=== PATIENT | male | born 1950 | race Caucasian/White ===

== ENCOUNTER 2019-09-04 00:46 | Inpatient (IN) | payer MEDICARE, MEDICAID, SELFPAY ==
[2019-09-04] VITALS (26 sets, daily range): BP systolic 119–150; BP diastolic 53–70; PULSE 60–100; RESP 12–28; TEMP 36.7–37.1; O2SAT 83–96; BMI 43.6; BMI 42.3; BMI 42.4
--- NOTE | 2019-09-04 00:52 | EKG12_ITS ---
Test Reason : SOB Blood Pressure : / mmHG Vent. Rate : 081 BPM Atrial Rate : 081 BPM P-R Int : 122 ms QRS Dur : 100 ms QT Int : 382 ms P-R-T Axes : 045 -13 080 degrees QTc Int : 443 ms Normal sinus rhythm Nonspecific ST and T wave abnormality Abnormal ECG Confirmed by ALICE KAMINSKI, VIKAS ([id number]), online editor JONO CARNEY ([id number]) on 09/06/2019 11:15:30 AM Referred By: MARCELINO Confirmed By:YENY JENKINS MD
--- NOTE | 2019-09-04 01:00 | RAD_ITS ---
STUDY: X-RAY CHEST REASON FOR EXAM: Male, 69 years old. INCREASED SOB X 2 DAYS -- WHEEZING TECHNIQUE: Single AP portable upright view of the chest. COMPARISON: PA and lateral chest x-ray January 20, 2013. FINDINGS: There are ill-defined, mixed bilateral perihilar interstitial and alveolar densities suggesting pulmonary edema. An inflammatory process might also have this appearance. There is no demonstrated pleural abnormality. Normal size heart. Normal mediastinum and megan. Normal visualized pulmonary arteries. Normal visualized aortic arch and descending thoracic aorta. Normal visualized thoracic spine. Normal visualized ribs, clavicles, and shoulders. There is no demonstrated abnormality of the visualized soft tissue structures of the upper abdomen. RAD/Chest 1 View (Portable) IMPRESSION: Bilateral ill-defined perihilar infiltrates consistent with pulmonary edema versus inflammation. Electronically Signed: Klaus Galloway MD at 1:26 EST , Service support ,
[2019-09-04 01:02] LABS: Absolute Lymphocyte Count 1.82 X10^3/uL (0.83-4.51); Absolute Neutrophil Count 10.3 X10^3/uL (2.0-7.7); Basophil# 0.04 X10^3/uL; Basophil% 0.3 % (0-1); Eosinophil# 0.02 X10^3/uL; Eosinophils% 0.1 % (0-5); Hematocrit 42.6 % (40-54); Hemoglobin 13.8 g/dL (13.0-16.5); Lymphocyte # 1.82 X10^3/ul (4.0); Lymphocyte % 12.5 % (19-41); Mean Corp Hgb Conc 32.4 g/dL (32-36); Mean Corpuscular Hgb 28.8 pg (27.0-32.0); Mean Corpuscular Volume 88.8 fL (80-94); Mean Platelet Vol. 11.5 fl (6.2-12.0); Monocyte# 2.27 X10^3/uL; Monocyte% 15.6 % (0-10); NRBC Flagged by Analyzer 0 % (0-5); Neutrophil # 10.28 X10^3/uL (2.7-7.7); Neutrophil % 70.9 % (47-70); POSITIVE DIFFERENTIAL YES; Platelet Count 228 K/mm3 (150-450); RBC Distribution Width CV 14.5 % (11.6-14.6); RBC Distribution Width SD 47.3 fl (35.1-43.9); White Blood Count 14.5 K/mm3 (4.4-11.0)
[2019-09-04 01:14] LABS: International Normalized Ratio 1.2; Prothrombin Time (Protime)PT. 15.1 SECONDS (11.7-14.9)
[2019-09-04 01:15] LABS: Partial Thromboplast Time 33.1 Seconds (24.1-36.2)
[2019-09-04 01:22] LABS: ALB/GLOB Ratio 0.6 RATIO (0.9-2.4); AST(SGOT) 15 U/L (15-37); Alanine Aminotransfer ALT/SGPT 18 U/L (16-61); Alkaline Phosphatase 67 U/L (45-117); Anion Gap 10 (5-15); BUN 33 mg/dL (7-18); BUN/Creat Ratio 18.8 RATIO (10-20); Calcium,Total 9.5 mg/dL (8.5-10.1); Chloride 102 mmol/L (98-107); Creatinine, Serum 1.76 mg/dL (0.70-1.30); Differential Indicated SCAN CRITERIA MET; EST Glomerular Filtration Rate 41 mL/min (>60); Est Glom Filt Rate - Afr Amer 50 mL/min (>60); Estimated Creatinine Clearance 33.64 ml/min; Globulin 5.1 g/dL (2.2-4.2); Glucose 368 mg/dL (74-106); Potassium 4.2 mmol/L (3.5-5.1); Protein, Total 8.1 g/dL (6.4-8.2); Sodium Level 134 mmol/L (136-145)
[2019-09-04 01:28] LABS: Lactic Acid 4.4 mmol/L (0.4-1.9)
[2019-09-04 01:32] LABS: Bacteria 0 SEEN /hpf (None Seen); Mucous, Urine 0 SEEN /hpf (<or=2+); Red Blood Cells-Urine 0 SEEN /hpf (0-5); Squamous Epithelial Cells - UA 0 SEEN /hpf (0-5); White Blood Cells 0 SEEN /hpf (0-5)
[2019-09-04 01:35] LABS: BNP,B-Type NATRIURETIC PEPTIDE 890.4 pg/mL (0-100)
[2019-09-04 01:38] LABS: Color, Urine Yellow (Yellow); Glucose, Dipstick 1000 mg/dl (Normal); Ketone-Dipstick Negative (Negative); Leukocyte Esterase-Dipstick Negative /ul (Negative); Nitrite-Dipstick Negative (Negative); Occult Blood-Urine 25 /ul (Negative); Protein-Dipstick 100 mg/dl (Negative); Urine Bilirubin Dipstick Negative (Negative); Urine Clarity Clear (Clear); Urine Urobilinogen Normal (Normal)
[2019-09-04 01:39] LABS: Differential Comment SCANNED
--- NOTE | 2019-09-04 01:59 | HP.PCM_ITS ---
Problem List (1) Heart failure Status: Suspected (2) Morbidly obese Status: Chronic (3) Dyslipidemia Status: Chronic (4) DME (diabetic macular edema) Status: Chronic (5) Benign essential HTN Status: Chronic History of Present Illness Date of Admission: 09/04/19 Chief Complaint: sob The patient is a 69 year old M patient with history of hypertension; but obesity; diabetes mellitus who presents emergency department with 2-3 days history of progressive worsening shortness of breath. His shortness of breath at rest and it increases markedly with minimal exertion. Associated with symptoms is orthopnea. He denies paroxysmal nocturnal dyspnea. BNP elevated but most elevated and chest x-ray was consistent with primary edema versus inflammation. ABG at the emergency department was remarkable PO2 of 68. Emergent department doctor reported the patient was speaking in short sentences and was in respiratory distress. BiPAP was placed at emergency department. Patient was found to have elevated troponin at the emergency department. Nitropaste was placed and patient was given 324 mg of aspirin. Past Medical History Past Medical History (Chronic Problems): Chronic Problems Morbidly obese (Chronic) Dyslipidemia (Chronic) DME (diabetic macular edema) (Chronic) Benign essential HTN (Chronic) Allergies No Known Allergies Allergy (Verified 09/04/19 00:51) Home Medications: Ambulatory Orders Medication Instructions Recorded Amlodipine [Norvasc] 10 mg PO DAILY 09/04/19 Atenolol [Tenormin (beta trisha)] 25 mg PO DAILY 09/04/19 Empagliflozin [Jardiance] 10 mg PO DAILY 09/04/19 Insulin Aspart [Novolog Flexpen] 35 units SUBCUT TID 09/04/19 Insulin Glargine,Hum.rec.anlog 70 units SUBCUT QHS 09/04/19 [Lantus] Metformin HCl [Metformin HCl ER] 1,000 mg PO BID 09/04/19 Oxybutynin [Ditropan] 5 mg PO DAILY 09/04/19 Pravastatin Sodium 20 mg PO QHS 09/04/19 Terazosin HCl [Hytrin] 2 mg PO QHS 09/04/19 hydroCHLOROthiazide 6.25 mg PO DAILY 09/04/19 [Hydrochlorothiazide] Surgical History: herniorrhaphy, - - Elbow surgery x2 Lives: With Family Smoking Status: Never smoker Alcohol: None - *Family History Maternal History Items: Diabetes, Hypertension Paternal History Items: Diabetes, Hypertension Review of Systems Constitutional: Denies: Chills, Fever, Weight Change HEENT: Denies: Head Aches, Sinus Congestion, Sinus Drainage Cardiovascular: Reports: Orthopnea. Denies: Chest Pain, Palpitations Respiratory: Reports: Shortness of breath at rest. Denies: Cough, Sputum production Gastrointestinal: Denies: Abdominal Pain, Nausea, Vomiting Genitourinary: Denies: Dysuria Musculoskeletal: Denies: Joint Pain, Joint Tenderness Skin: Denies: Rash, Wounds Neurological: Denies: Numbness, Tingling, Focal weakness Psychiatric: Denies: Anxiety, Depression, Homicidal Ideations, Suicidal Ideations Hematologic/ Lymphatic: Denies: Easy Bruising, Easy Bleeding VTE Information - Inpt Only VTE Present on Admission: No VTE Mechan Device Prophylaxis: None VTE Pharm Prophylaxis ordered?: No Patient Problems: Active and Suspected Problems Heart failure (Suspected) - Physical Exam Vitals/I&O's: Vital Signs Temp Pulse Resp BP Pulse Ox 98.5 F 87 26 H 150/67 H 93 09/04/19 00:52 09/04/19 00:52 09/04/19 00:52 09/04/19 00:52 09/04/19 00:52 Oxygen Flow Rate (L/min) 3 Oxygen Delivery Method Nasal Cannula Weight: 115.3 kg Body Mass Index (BMI) 43.6 General: Alert, Oriented x3, Cooperative HEENT: Atraumatic, PERRLA, EOMI, Normocephalic Neck: Supple, No JVD, Negative Carotid Bruits Lungs: No rhonchi, No wheeze, Diminished, Tachypneic, Using Accessory Muscles, - - On BiPAP Cardiovascular: Regular rate, Normal S1, Normal S2, No murmurs Abdomen: Bowel Sounds Present, Soft, Non Tender Extremities: Capillary Refill Less than 3 Seconds, No Calf Tenderness Skin: No rashes, No breakdown Musculoskeletal: No Tenderness to Palpation of Joints or Extremities Neurological: Cranial nerves II-XII grossly intact Psych/Mental Status: Normal Affect, Appropriate Laboratory Results 09/04/19 00:50: WBC 14.5 H, RBC 4.80, Hgb 13.8, Hct 42.6, MCV 88.8, MCH 28.8, MCHC 32.4, RDW Std Deviation 47.3 H, RDW Coeff of Hayde 14.5, Plt Count 228, MPV 11.5, Immature Gran % (Auto) 0.600, Neut % (Auto) 70.9 H, Lymph % (Auto) 12.5 L, [place] % (Auto) 15.6 H, Eos % (Auto) 0.1, Baso % (Auto) 0.3, Absolute Neuts (auto) 10.3 H, Absolute Lymphs (auto) 1.82, Nucleated RBC % 0, Differential Comment SCANNED, Diff Path Review November09/04/19 00:50: PT 15.1 H, INR 1.2, APTT 33.1 09/04/19 00:50: Sodium 134 L, Potassium 4.2, Chloride 102, Carbon Dioxide 22.0, Anion Gap 10, BUN 33 H, Creatinine 1.76 H, Estim Creat Clear Calc 33.64, Est GFR (MDRD) Af Amer 50 L, Est GFR (MDRD) Non-Af 41 L, BUN/Creatinine Ratio 18.8, Glucose 368 H, Calcium 9.5, Total Bilirubin 0.90, AST 15, ALT 18, Alkaline Phosphatase 67, Troponin I 0.329 H, Total Protein 8.1, Albumin 3.0 L, Globulin 5.1 H, Albumin/Globulin Ratio 0.6 L 09/04/19 00:50: Lactic Acid 4.4 H* 09/04/19 00:50: B-Natriuretic Peptide 890.4 H 09/04/19 01:28: Urine Color Yellow, Urine Clarity Clear, Urine pH 6.0, Ur Specific [place] 1.010, Urine Protein 100 H, Urine Glucose (UA) 1000 H, Urine Ketones Negative, Urine Occult Blood 25 H, Urine Nitrite Negative, Urine Bilirubin Negative, Urine Urobilinogen Normal, Ur Leukocyte Esterase Negative, Urine RBC 0 SEEN, Urine WBC 0 SEEN, Ur Squamous Epith Cells 0 SEEN, Urine Bacteria 0 SEEN, Urine Mucus 0 SEEN Assessment/Plan The patient is a 69 year old M patient with history of hypertension; morbid obesity; and diabetes mellitus who presented at the emergency department with 2-3 days history of progressive worsening shortness of breath; and found to have hypoxia; elevated lactic acid; elevated troponin and with chest x-ray finding of bilateral ill-defined perihilar infiltrates consistent with likely acute heart failure Suspect heart failure Patient with leukocytosis but with no fever. Also patient with lactic acidosis. Place on monitored bed at [facility] Weight on admission; and then daily Strict I&O's Impression of chest x-ray: Bilateral ill-defined perihilar infiltrate consistent with pulmonary edema versus inflammation. Chest x-ray was independently reviewed I agree with radiologist interpretation. EKG independently reviewed confirms nonspecific ST abnormalities. Emergency department labs reviewed confirms a BNP of 890.4. Lasix 40 mg IV x1. Lasix 40 mg IV twice daily with potassium supplementation ordered. Trend BMP. Echo ordered to evaluate LVEF and wall motion Monitor electrolytes Fluid restriction of 1500 mls daily 2 g cardiac diet Continue BiPAP started at the emergency department. Nitropaste was placed on the emergency department; continue. Elevated troponin Troponin on presentation was 0.329 Likely secondary to demand ischemia from CHF. Trend troponin. If troponin remained elevated consider cardiology consult. Aspirin 325 mg given emergency department. Aspirin 81 mg daily. Diabetes mellitus with hyperglycemia Glucose on presentation was 368 Resume home Lantus. Metformin held secondary to lactic acidosis. Home prandial insulin continued. Accu-Chek QA CHS with correction scale insulin. Continue SGLT2 inhibitors. Lispro 8 units subcutaneous x1 dose ordered Hypertension On presentation blood pressure was not within goal Amlodipine continued Atenolol continued Hydrochlorothiazide continued Lasix as above. Trend blood pressure and adjust blood pressure medications OLAYINKA Creatinine was 1.76. BUN is 33. BUN over creatinine is 18.8. Likely secondary to decreased perfusion secondary to CHF. Lasix as above. Trend BMP. Morbid obesity BMI 43.6. Counseled DVT prophylaxis Subcutaneous Lovenox.. Code Visit Inpatient E&M: 10386 Init Hosp L3
[2019-09-04] MEDS: Nitroglycerin Oint 1 INCH PACKET TRANSDERM. ×4 (02:05→17:23)
[2019-09-04] MEDS: Aspirin 81 MG TAB.CHEW 324 MG PO (02:06)
--- NOTE | 2019-09-04 02:07 | NURSING ---
TALKED TO MARISSA AT THE [facility] AND WAS TOLD THEY ARE NOT TAKING ANY TRANSFERS THIS EVENING.
[2019-09-04 02:10] LABS: Allen Test POS; Base Excess -1 mmol/L (-2 to +2); Bicarbonate 24.2 mmol/L (22-26); Blood Gas Specimen Type ART; EPAP 6; FI02 30; IPAP 12; PO2 68 mmHG (75-100); RR 12; SITE R Radial; SO2 93 % (95-99); Time Given 158; Total Carbon Dioxide 25 mmol/L; pCO2 40.7 mmHg (35-45); pH 7.38 (7.35-7.45)
[2019-09-04] MEDS: Furosemide 40 MG/4 ML Vial IV ×3 (02:50→17:23)
--- NOTE | 2019-09-04 02:51 | ED.VISSUMM ---
- ER Visit Summary Date of Service: 09/04/19 Chief Complaint: Shortness of breath History of Present Illness: The patient is a 69 M with shortness of breath for 2 days. This came on gradually. Worse with exertion. He also complains of wheezing and a dry cough. Denies fevers. Denies sputum. Denies upper respiratory infection symptoms. Denies any GI or symptoms. Denies rash. No recent sick contacts or travel. He has a history of diabetes, hypertension, hyperlipidemia. Denies any history of lung disease or PE. Denies any history of heart disease. Physical Examination: Afebrile and vital signs unremarkable except for respiratory rate of 26 and pulse ox 93% on nasal cannula. He is speaking in 2 word phrases and appears to be in moderate distress. Alert and oriented. Heart regular rate and rhythm. Lungs diminished in all davis. Abdomen soft and nontender. Extremities show 1+ pitting edema, symmetric. Nontender. Skin otherwise normal. Test Results: EKG shows sinus rhythm at a rate of [address] and T wave changes. White count 14.5, glucose 368, BUN 33, creatinine 1.76. Coags unremarkable. Urinalysis normal. Troponin 0.329, BNP 890, lactate 4.4. Cultures pending. Influenza negative. ABG showed a pH of 7.38, CO2 40, O2 68. Chest x-ray showed pulmonary edema pattern. Emergency Department Course and Treatment: Patient was seen on arrival to the ED. He was in respiratory distress and started on BiPAP. There was concern for COPD and CHF primarily. He is not having a lot of infectious symptoms however. He is not having fevers. He seemed to be doing well on BiPAP. EKG was nonspecific. Troponin was slightly elevated 0.3. BNP 890. X-ray showed congestion. He did have a white count of 14.5 and a lactate of 4.4. I spoke with him again. He has no infectious symptoms, and I do not think this is sepsis. His urine was normal. I will not administer fluid bolus or antibiotics at this time. Patient was treated with aspirin, nitro, and the hospitalist ordered Lasix. Patient is stable and will be admitted to the PCU for further care. Treatment Plan: As above Disposition: PCU Impression: 1. CHF 2. Lactic acidosis 3. Hypoxic respiratory failure This note was generated with Dragon dictation software. It may contain incorrect words, spelling, and punctuation that were not noted in review of the chart prior to signing
--- NOTE | 2019-09-04 03:35 | ECHOD_ITS ---
Reason For Study: Dyspnea/SOB Procedure This was a 2D Doppler, Color Flow transthoracic echocardiogram. The study was technically difficult. Did not use Definity due to increased PAP. Exam performed portable in patient room. Left Ventricle Normal LV size. The estimated ejection fraction is 35 %. Stage 2 diastolic dysfunction. There is moderate global hypokinesis of the left ventricle. Right Ventricle Normal RV size. Normal systolic function. Atria The left atrium is mildly enlarged. Normal right atrium. No doppler evidence for ASD. Mitral Valve There is no mitral valve stenosis. Trivial mitral valve insufficiency. Tricuspid Valve There is no tricuspid stenosis. Mild tricuspid valve insufficiency. Severe pulmonary hypertension. Pulmonary artery systolic pressure is 75 mmHg. Aortic Valve Trisinus/trileaflet aortic valve. Aortic sclerosis, no stenosis. There is no aortic stenosis. No aortic valve insufficiency. Pulmonic Valve There is no pulmonic valvular stenosis. No pulmonic valve insufficiency identified. Great Vessels Normal aortic root. Pericardium/Pleural No pericardial effusion. MMode/2D Measurements & Calculations LVIDd: 5.6 cm IVSd: 1.2 cm Ao root diam: 3.4 cm LVIDs: 4.8 cm LVPWd: 1.2 cm RVDd: 3.7 cm FS: 13.3 % LAV(MOD-bp): 67.5 ml LA A4 area: 21.3 cm2 LA dimension(2D): 4.4 cm LAV(MOD-bp) Indexed: 32.9 ml/m2 LAV(MOD-sp2): 69.1 ml LAV(MOD-sp4): 63.1 ml RA A4 area: 12.1 cm2 Doppler Measurements & Calculations MV E max diony: 107.3 cm/sec Lat Peak E' Diony: 6.9 cm/sec Med Peak E' Diony: 4.4 cm/sec MV A max diony: 84.5 cm/sec E/E' lat: 15.6 E/E' med: 24.3 MV E/A: 1.3 Ao V2 max: 168.2 cm/sec LV V1 max: 97.1 cm/sec PA V2 max: 96.0 cm/sec Ao max P.3 mmHg LV V1 max P.8 mmHg Ao V2 mean: 122.6 cm/sec Ao mean P.5 mmHg Ao V2 VTI: 32.3 cm TR max diony: 412.7 cm/sec TR max P.1 mmHg Interpretation Summary The estimated ejection fraction is 35 %. Stage 2 diastolic dysfunction. Trivial mitral valve insufficiency. Mild tricuspid valve insufficiency. Severe pulmonary hypertension. Pulmonary artery systolic pressure is 75 mmHg. Aortic sclerosis, no stenosis. The study was technically limited. Ordering Physician: Kayode Hurley Performed By: Anna Polanco RDCS, RVT
[2019-09-04] MEDS: Insulin Lispro 100 UNIT/ML INSULN.PEN 8 UNIT SC (04:10)
[2019-09-04 04:58] LABS: Reflex Lactate? Y
--- NOTE | 2019-09-04 05:17 | NURSING ---
called lab re: stat troponin order. informed that they were unsuccessful to obtain his blood and fashion patternmaker will be attempting.
[2019-09-04 05:48] LABS: Lactic Acid 2.2 mmol/L (0.4-1.9)
--- NOTE | 2019-09-04 06:22 | NURSING ---
CHARGE NURSE AWARE OF NEW ORDER FOR CARDIOLOGY CONSULT D/T ELEVATED TROPONINS AND REPORTED SHE WILL TEXT DR JENKINS AT THIS TIME
--- NOTE | 2019-09-04 07:57 | PN_ITS ---
Progress Note This is a 69 years old male patient presented to the emergency room because of exertional shortness of breath and he was found to have acute probably systolic CHF. No past history of CAD or congestive heart failure. He is diabetic, hypertensive and had a history of hyperlipidemia. He is on 4 L of oxygen, other vital signs are stable. He is on IV Lasix, atenolol, aspirin and statins. EKG revealed normal sinus rhythm without evidence of acute segment changes. Troponin is elevated consistent with non-ST relation MS. 2D echocardiogram o rdered. Cardiology consulted. Assessment and plan: #1 acute probably systolic CHF. Plan for IV Lasix, 2D echocardiogram, cardiology consult. #2 acute non-ST elevation MS. Plan as above. #3 lactic acidosis: Likely because of hypoxia, no evidence of infection, sepsis with sepsis. #4 kidney disease: Probably chronic secondary to diabetic nephropathy. Unknown baseline creatinine. Admission creatinine 1.7. STROKE Vital Signs/Narrative: Vital Signs Temp Pulse Resp BP Pulse Ox 09/04/19 07:12 69 09/04/19 06:15 71 131/69 H 09/04/19 06:08 98.8 F 71 15 131/69 H 96 09/04/19 06:00 71 15 95 09/04/19 05:14 70 16 93 09/04/19 04:32 76
[2019-09-04 08:16] LABS: Bedside Glucose 282 mg/dL (70-110)
[2019-09-04] MEDS: Aspirin 81 MG TAB.CHEW PO (08:49)
[2019-09-04] MEDS: Oxybutynin 5 MG Tablet PO (09:01)
[2019-09-04] MEDS: Atenolol 25 MG Tablet PO (09:03)
[2019-09-04] MEDS: Empagliflozin 10 MG Tablet PO (09:04)
[2019-09-04] MEDS: hydroCHLOROthiazide 6.25mg TAB 6.25 MG PO (09:04)
[2019-09-04] MEDS: amLODIPine 10 MG Tablet PO (09:05)
[2019-09-04] MEDS: Insulin Lispro 100 UNIT/ML INSULN.PEN 35 UNIT SC ×3 (09:20→17:24)
[2019-09-04] MEDS: Insulin Lispro 100 UNIT/ML INSULN.PEN SC ×3 (09:24→17:25)
--- NOTE | 2019-09-04 11:58 | CM.UR ---
Addendum entered by Guerita Liu 09/04/19 15:30: Faxed clinical to [facility] PCP so they are aware of IP status, new diagnosis of CHF and discharge planning has been started. also started green [facility]. [facility] use [facility] services and they also can take medicare so he can use them, if approved to start [facility] but if he can't make it to [facility] for his 30 day f/u then he can stay with them but switch the payer over to his [facility]. Hernandez Liu RN,CCM. Addendum entered by Guerita Liu 09/04/19 12:17: Patient requested a prescription for a handicap placard. Explained he'll need to discuss with his pcp. I asked about his ability to ambulate. States the problem lies in his incontinence. States the shortly after getting up to walk he has to urinate and will either dribble or sometimes has full urination. Encouraged patient to ambulate as it is good for him as he is obese and that exercise would be good for his heart. Encouraged him that when he drives the [place] to the store --he should get out of van and walk around too. Verb understanding. Hernandez Liu RN, CCM. Original Note: RN CM Assessment Introduced role of RN CM to patient. Patient is alert and able to participate in RN CM Assessment. Care providers, pharmacy, and demographics verified. No family at bedside. Presentation: worsening sob Admit Dx: suspected heart failure Re-Admit: no Barriers/Issues: motivation PCP: RICK Londono. States he got new provider and doesn't know her name. Preferred Pharmacy: [facility] Insurance: [facility] A/B, Medicaid and [facility] Benefit: [facility]--has not used his medicaid benefits as of yet. States it is new. LNOK: , Norma LW/HPOA: None. [facility] is interested in doing while in hospital. Alerted SW. Living Arrangements: Lives in apartment. Only a couple steps in and manages them ok. However laundry is in basement. both him and his have trouble with the steps and are looking for a different apartment. ADL?s: Independent with all ADLs. Transportation: drives self. DME: Shower chair, raised toilet DME co: [facility] HHC: None SNF: None Goal: Home with no needs. DC PLAN: Home. following for possible O2 need. [facility]. I explained they don't do o2 on the weekend so it wouldn't be til Friday or Friday that the o2 can be obtained [facility]. Also explained that he would have to go to [place] within 30 days in order to be assessed to keep the O2. States that he does have trouble making it to [place] d/t working 6 days per week. Explained that he should consider getting locally through is [facility]. Verb understanding. Recommended he think about it. Explained we will try to wean him and hopefully it won't be an issue at all. Verb understanding. Hernandez Liu, RN, CCM.
[2019-09-04 12:31] LABS: Bedside Glucose 290 mg/dL (70-110)
[2019-09-04 17:41] LABS: Bedside Glucose 190 mg/dL (70-110)
--- NOTE | 2019-09-04 18:05 | CM.ED ---
SOCIAL WORK INFORMANT: MING RUSSELL REASON FOR REFERRAL: [facility] DIRECTIVES MET WITH PATIENT AND IN ROOM. INTRODUCED ROLE AND REASON FOR REFERRAL. PATIENT WISHES TO COMPLETE [facility] DIRECTIVES. PATIENT A&OX3. PATIENT WANTING NAMED HPOA. ADVANCED DIRECTIVES COMPLETED WITH PATIENT. ORIGINAL PROVIDED TO PATIENT AND COPY ADDED TO CHART. Kassie THOMPSON MSW, ACUPUNCTURIST.
[2019-09-04] MEDS: Pravastatin 20 MG Tablet PO (21:45)
[2019-09-04] MEDS: Doxazosin 1 MG Tablet 2 MG PO (21:45)
[2019-09-04 21:46] LABS: Bedside Glucose 69 mg/dL (70-110)
--- NOTE | 2019-09-04 23:45 | PCM.PN.BLA ---
Progress Note Blood glucose 69. Long-acting insulin held. Blood glucose at 2 AM. If blood glucose more than 150 consider giving long-acting insulin. STROKE Vital Signs/Narrative: Vital Signs Temp Pulse Resp BP Pulse Ox 09/04/19 22:59 64 09/04/19 21:30 98.2 F 65 14 128/70 H 94
[2019-09-05] VITALS (15 sets, daily range): BP systolic 113–137; BP diastolic 54–74; PULSE 63–76; RESP 16–18; TEMP 36.9–37.1; O2SAT 4–94
[2019-09-05] MEDS: Nitroglycerin Oint 1 INCH PACKET TRANSDERM. ×4 (00:22→17:01)
--- NOTE | 2019-09-05 02:02 | PCM.PN.BLA ---
Progress Note Repeat blood glucose is 102. With previous day episodes of hyperglycemia will restart Lantus but at a lower dose. Decrease Lantus from 70 units nightly to 30 units nightly. Give half dose of prandial insulin if patient eats less than 50% of meals. Of note reportedly patient ate only a little of his dinner last night and for which reason his blood glucose was 69. STROKE Vital Signs/Narrative: Vital Signs Pulse BP 09/05/19 00:22 65 125/68 H 09/04/19 22:59 64
[2019-09-05 02:06] LABS: Bedside Glucose 102 mg/dL (70-110)
[2019-09-05 06:08] LABS: Absolute Lymphocyte Count 1.94 X10^3/uL (0.83-4.51); Absolute Neutrophil Count 5.3 X10^3/uL (2.0-7.7); Basophil# 0.03 X10^3/uL; Basophil% 0.4 % (0-1); Eosinophil# 0.13 X10^3/uL; Eosinophils% 1.5 % (0-5); Hematocrit 37.9 % (40-54); Hemoglobin 12.2 g/dL (13.0-16.5); Lymphocyte # 1.94 X10^3/ul (4.0); Lymphocyte % 22.8 % (19-41); Mean Corp Hgb Conc 32.2 g/dL (32-36); Mean Corpuscular Hgb 28.4 pg (27.0-32.0); Mean Corpuscular Volume 88.3 fL (80-94); Monocyte# 1.12 X10^3/uL; Monocyte% 13.1 % (0-10); NRBC Flagged by Analyzer 0 % (0-5); Neutrophil # 5.25 X10^3/uL (2.7-7.7); Neutrophil % 61.6 % (47-70); Platelet Count 222 K/mm3 (150-450); RBC Distribution Width CV 14.6 % (11.6-14.6); RBC Distribution Width SD 46.9 fl (35.1-43.9); Red Blood Count 4.29 M/mm3 (4.6-6.2); White Blood Count 8.5 K/mm3 (4.4-11.0)
[2019-09-05 06:35] LABS: Anion Gap 6 (5-15); BUN 35 mg/dL (7-18); BUN/Creat Ratio 23.3 RATIO (10-20); Calcium,Total 9.6 mg/dL (8.5-10.1); Chloride 103 mmol/L (98-107); EST Glomerular Filtration Rate 49 mL/min (>60); Est Glom Filt Rate - Afr Amer 60 mL/min (>60); Estimated Creatinine Clearance 39.47 ml/min; Glucose 108 mg/dL (74-106); Potassium 3.7 mmol/L (3.5-5.1); Sodium Level 138 mmol/L (136-145)
--- NOTE | 2019-09-05 08:20 | PCM.PROGNOTE ---
Patient Problems: Active and Suspected Problems Acute CHF (congestive heart failure) (Acute) Subjective: Chief complaint: Follow-up after admission for acute combined diastolic and systolic CHF and acute non-ST relation NV. Patient seen and examined. No acute events overnight. He reported that his breathing is getting better, still requiring oxygen. Denied any chest pain, palpitation, dizziness or lightheadedness. He is afebrile, blood pressure and heart rate are stable, pulse ox is 94% on 4 L. - Physical Exam Vitals/I&O's: Vital Signs Temp Pulse Resp BP Pulse Ox 98.5 F 76 16 137/73 H 4 09/05/19 03:15 09/05/19 07:06 09/05/19 03:15 09/05/19 06:25 09/05/19 07:30 Oxygen Flow Rate (L/min) 4 Oxygen Delivery Method Nasal Cannula Weight: 239 lb 13.807 oz Body Mass Index (BMI) 42.3 Intake and Output for Last 24 Hours 09/03/19 09/04/19 09/05/19 23:59 23:59 23:59 Intake Total 1030 / 1030 Output Total 5 / 2094 150 / 150 Balance -1065 / -1065 -150 / -150 General: Alert, Oriented x3, Cooperative, No apparent distress HEENT: Atraumatic, PERRLA, EOMI, Normocephalic Oral: Moist Mucosa, No Gingival or Mucosal Lesions/ Ulcerations Neck: Supple, No JVD, Negative Carotid Bruits, Trachea Midline, Thyroid Normal Size and Texture Lungs: No rhonchi, No wheeze, Diminished, Rales, - - Decreased breath sounds bilateral, bilateral basilar crackles. Cardiovascular: Regular rate, Regular Rhythm, Normal S1, Normal S2, PMI Normal Abdomen: Bowel Sounds Present, Soft, Non Tender, Non-Distended, No Hepato-splenomegaly, Obese Extremities: No clubbing, No cyanosis, Edema - Trace edema. Skin: No rashes, No breakdown Lymphatic: No Cervical, Supraclavicular, or Inguinal Adenopathy Neurological: Cranial nerves II-XII grossly intact, Motor Exam 5/5 strength throughout Psych/Mental Status: Normal Affect, Appropriate, Alert and oriented to time, place, person, mood and affect Microbiology Past 72 Hours 09/04/19 01:38 Mucosa - Nasopharyngeal Influenza Types A,B Direct FA (MELISA) - Final Laboratory Results 09/04/19 08:03: Troponin I 1.930 H* 09/04/19 12:14: POC Glucose 290 H 09/04/19 17:14: POC Glucose 190 H 09/04/19 21:33: POC Glucose 69 L 09/05/19 01:57: POC Glucose 102 09/05/19 05:36: WBC 8.5, RBC 4.29 L, Hgb 12.2 L, Hct 37.9 L, MCV 88.3, MCH 28.4, MCHC 32.2, RDW Std Deviation 46.9 H, RDW Coeff of [place]de 14.6, Plt Count 222, MPV 11.0, Immature Gran % (Auto) 0.600, Neut % (Auto) 61.6, Lymph % (Auto) 22.8, [place] % (Auto) 13.1 H, Eos % (Auto) 1.5, Baso % (Auto) 0.4, Absolute Neuts (auto) 5.3, Absolute Lymphs (auto) 1.94, Nucleated RBC % 0 09/05/19 05:36: Sodium 138, Potassium 3.7, Chloride 103, Carbon Dioxide 29.0, Anion Gap 6, BUN 35 H, Creatinine 1.50 H, Estim Creat Clear Calc 39.47, Est GFR (MDRD) Af Amer 60, Est GFR (MDRD) Non-Af 49 L, BUN/Creatinine Ratio 23.3 H, Glucose 108 H, Calcium 9.6 Current Medications Acetaminophen (Tylenol) 650 mg PO Q6H PRN PRN PRN Reason: Pain Score 1-10 /Temp>100.7 Amlodipine Besylate (Norvasc) 10 mg PO DAILY [facility] Last Admin: 09/04/19 09:05 Dose: 10 mg Documented by: Aspirin (Aspirin, Baby) 81 mg PO DAILY@0800 [facility] Last Admin: 09/04/19 08:49 Dose: 81 mg Documented by: Atenolol (Tenormin (Beta Denise)) 25 mg PO DAILY [facility] Last Admin: 09/04/19 09:03 Dose: 25 mg Documented by: Doxazosin Mesylate (Cardura) 2 mg PO QHS [facility] Last Admin: 09/04/19 21:45 Dose: 2 mg Documented by: Empagliflozin (Jardiance) 10 mg PO DAILY [facility] Last Admin: 09/04/19 09:04 Dose: 10 mg Documented by: Furosemide (Lasix) 40 mg IV BIDLX [facility] Last Admin: 09/04/19 17:23 Dose: 40 mg Documented by: Glucagon () 1 mg IM .X1 PRN PRN Reason: Hypoglycemia Hydrochlorothiazide () 6.25 mg PO DAILY [facility] Last Admin: 09/04/19 09:04 Dose: 6.25 mg Documented by: Dextrose (Dextrose 10%-Water) 250 mls @ 999 mls/hr IV .Q16M PRN; Protocol PRN Reason: HYPOGLYCEMIA Insulin Glargine (Lantus (Bk)) 30 units SC QHS [facility] Last Admin: 09/05/19 03:09 Dose: 30 units Documented by: Insulin Human Lispro (Humalog Kwikpen ([facility])) 35 unit SC TIDAC [facility] Last Admin: 09/04/19 17:24 Dose: 35 units Documented by: Insulin Human Lispro (Humalog Kwikpen (Bk)) 0 unit SC ACHS [facility]; Protocol Last Admin: 09/04/19 21:45 Dose: Not Given Documented by: Nitroglycerin (Nitrobid) 1 inch TRANSDERM. Q6 [facility] Last Admin: 09/05/19 06:25 Dose: 1 inch Documented by: Ondansetron HCl (Zofran) 4 mg IV Q8H PRN PRN PRN Reason: Nausea Oxybutynin Chloride (Ditropan) 5 mg PO DAILY [facility] Last Admin: 09/04/19 09:01 Dose: 5 mg Documented by: Potassium Chloride (Potassium Chl Soln) 40 meq PO DAILY [facility] Last Admin: 09/04/19 08:58 Dose: 40 meq Documented by: Pravastatin Sodium (Pravachol) 20 mg PO QHS [facility] Last Admin: 09/04/19 21:45 Dose: 20 mg Documented by: Sodium Chloride () 10 - 40 ml IV UD PRN PRN Reason: SALINE FLUSH Medical Necessity - Tobacco Use Smoking Status: Never smoker Assessment/Plan All Active Problems Acute CHF (congestive heart failure) (Acute) This is a 69 years old male patient presented to the emergency room because of shortness of breath and he was found to have acute combined systolic and diastolic CHF and acute non-ST elevation NV. #1 acute combined systolic and diastolic CHF: He is on IV Lasix, on atenolol, HCTZ. Patient reported improvement of his symptoms. 2D echocardiogram revealed ejection fraction of 35%, stage II diastolic dysfunction, pulmonary artery pressure of 75. Blood pressure and heart rate are stable, requiring oxygen of up to 4 L. Cardiology consulted. Patient probably will go for cardiac catheterization tomorrow. Plan to start LUIS ALBERTO inhibitor's, discontinue HCTZ. #2 acute non-ST elevation NV: He is chest pain-free. EKG reviewed, no acute segment changes. He is on aspirin, statins, atenolol. 2D echocardiogram reviewed as above. Cardiology on the case. Plan: Start lisinopril, probable cardiac catheterization tomorrow. #3 type 2 diabetes mellitus: Blood sugar has been fluctuating, he is on Humalog insulin 3 times daily, Lantus 30 units nightly as well as sliding scale and Jardiance. Metformin held. #4 hypertension: Blood pressure stable, continue Norvasc, atenolol and Lasix. Plan to start lisinopril, discontinue HCTZ. #5 stage III chronic kidney disease: On the results available his chart was from December,, creatinine 1.5. Admission creatinine was 1.76, it came down to 1.53 today plan to monitor. #6 hyperlipidemia: Continue statins. #7 DVT prophylaxis: Start subcu heparin. This note was generated with [employer] dictation software. It may contain incorrect words, spelling, and punctuation that were not noted in checking the note before signing. Code Visit Inpatient E&M: 64612 Subs Hosp L2
[2019-09-05] MEDS: Aspirin 81 MG TAB.CHEW PO (08:33)
[2019-09-05] MEDS: Oxybutynin 5 MG Tablet PO (08:34)
[2019-09-05] MEDS: Furosemide 40 MG/4 ML Vial IV ×2 (08:34→17:09)
[2019-09-05] MEDS: Empagliflozin 10 MG Tablet PO (08:34)
[2019-09-05] MEDS: amLODIPine 10 MG Tablet PO (08:35)
[2019-09-05] MEDS: Atenolol 25 MG Tablet PO (08:35)
[2019-09-05] MEDS: Insulin Lispro 100 UNIT/ML INSULN.PEN 35 UNIT SC ×3 (08:45→16:59)
--- NOTE | 2019-09-05 09:50 | PCM.CONS.C ---
Reason for Consult Date of Consultation: 09/04/19 Reason for Consultation: CHF, non-STEMI History of Present Illness: The patient is a 69 year old M patient with history of hypertension; but obesity; diabetes mellitus who presents emergency department with 2-3 days history of progressive worsening shortness of breath. His shortness of breath at rest and it increases markedly with minimal exertion. Associated with symptoms is orthopnea. He denies paroxysmal nocturnal dyspnea. ABG at the emergency department was remarkable PO2 of 68. Emergent department doctor reported the patient was speaking in short sentences and was in respiratory distress. BiPAP was placed at emergency department. Patient was found to have elevated troponin at the emergency department. Nitropaste was placed and patient was given 324 mg of aspirin. Patient was started on Lasix and his shortness of breath improved. His echocardiogram revealed decreased EF. Review of systems: All systems reviewed. All else is negative except that in the HPI Past Medical History Allergies/Adverse Reactions: Allergies No Known Allergies Allergy (Verified 09/04/19 00:51) Home Medications: Ambulatory Orders Medication Instructions Recorded Amlodipine [Norvasc] 10 mg PO DAILY 09/04/19 Atenolol [Tenormin (beta trisha)] 25 mg PO DAILY 09/04/19 Empagliflozin [Jardiance] 10 mg PO DAILY 09/04/19 Insulin Aspart [Novolog Flexpen] 35 units SUBCUT TID 09/04/19 Insulin Glargine,Hum.rec.anlog 70 units SUBCUT QHS 09/04/19 [Lantus] Metformin HCl [Metformin HCl ER] 1,000 mg PO BID 09/04/19 Oxybutynin [Ditropan] 5 mg PO DAILY 09/04/19 Pravastatin Sodium 20 mg PO QHS 09/04/19 Terazosin HCl [Hytrin] 2 mg PO QHS 09/04/19 hydroCHLOROthiazide 6.25 mg PO DAILY 09/04/19 [Hydrochlorothiazide] Past Medical History (Chronic Problems): Chronic Problems Chronic kidney disease (CKD) (Chronic) Type 2 diabetes mellitus (Chronic) Morbidly obese (Chronic) Dyslipidemia (Chronic) DME (diabetic macular edema) (Chronic) Benign essential HTN (Chronic) Surgical History: herniorrhaphy, - - Elbow surgery x2 - *Family History Maternal History Items: Diabetes, Hypertension Paternal History Items: Diabetes, Hypertension Lives: With Family Smoking Status: Never smoker Alcohol: None Objective: Vital Signs Temp Pulse Resp BP Pulse Ox 98.7 F 71 16 131/74 H 93 09/05/19 08:28 09/05/19 08:28 09/05/19 08:28 09/05/19 08:28 09/05/19 08:28 Oxygen Flow Rate (L/min) 3 Oxygen Delivery Method Nasal Cannula Weight: 239 lb 13.807 oz Body Mass Index (BMI) 42.3 Intake and Output for Last 24 Hours 09/03/19 09/04/19 09/05/19 23:59 23:59 23:59 Intake Total 1030 / 1030 Output Total 5 / 209 150 / 150 Balance -1065 / -1065 -150 / -150 General: Awake, Alert, Oriented x 3 HEENT: Atraumatic Oral: Moist Mucosa Neck: Supple, Positive JVD Lungs: Rales - Dank Bases Cardiovascular: Normal S1, Normal S2 Abdomen: Soft Extremities: Bilateral Edema +2 Skin: No Rashes Psych/Mental Status: Appropriate 09/05/19 05:36: WBC 8.5, RBC 4.29 L, Hgb 12.2 L, Hct 37.9 L, MCV 88.3, MCH 28.4, MCHC 32.2, Plt Count 222, MPV 11.0, Immature Gran % (Auto) 0.600, Neut % (Auto) 61.6, Lymph % (Auto) 22.8, [place] % (Auto) 13.1 H, Eos % (Auto) 1.5, Baso % (Auto) 0.4, Absolute Neuts (auto) 5.3, Nucleated RBC % 0 09/05/19 05:36: Sodium 138, Potassium 3.7, Chloride 103, Carbon Dioxide 29.0, Anion Gap 6, BUN 35 H, Creatinine 1.50 H, Est GFR (MDRD) Af Amer 60, Est GFR (MDRD) Non-Af 49 L, BUN/Creatinine Ratio 23.3 H, Glucose 108 H, Calcium 9.6 Rhythm: EKG: ECHO: Stress Test: Cardiac Cath: PCI: CT Surgery: Holter monitor: EPS: PPM: CXR: Chest CT Scan: Assessment/Plan 1. CHF: Continue Lasix. 2D echo revealed decreased EF. We will proceed with coronary angiography to evaluate cause for CHF and elevated troponin. 2. Non-STEMI: Continue aspirin beta-trisha and statin. Coronary angiography on Friday.
[2019-09-05] MEDS: Lisinopril 20 MG Tablet PO (10:09)
[2019-09-05 10:46] LABS: Bedside Glucose 137 mg/dL (70-110)
--- NOTE | 2019-09-05 12:34 | PN.CARD_ITS ---
Subjectve: Shortness of breath has improved. Patient is feeling much better today. Objective: Vital Signs Temp Pulse Resp BP Pulse Ox 98.7 F 71 16 131/74 H 93 09/05/19 08:28 09/05/19 08:28 09/05/19 08:28 09/05/19 08:28 09/05/19 08:28 Oxygen Flow Rate (L/min) 3 Oxygen Delivery Method Nasal Cannula Weight: 239 lb 13.807 oz Body Mass Index (BMI) 42.3 Intake and Output for Last 24 Hours 09/03/19 09/04/19 09/05/19 23:59 23:59 23:59 Intake Total 1030 / 1030 240 / 240 Output Total 2095 / 2095 600 / 600 Balance -1065 / -1065 -360 / -360 General: Awake, Alert, Oriented x 3 HEENT: Atraumatic Oral: Moist Mucosa Neck: Supple Lungs: Rales - Dank Bases Cardiovascular: Normal S1, Normal S2 Abdomen: Soft Extremities: Bilateral Edema +1 Skin: No Rashes Psych/Mental Status: Appropriate 09/05/19 05:36: WBC 8.5, RBC 4.29 L, Hgb 12.2 L, Hct 37.9 L, MCV 88.3, MCH 28.4, MCHC 32.2, Plt Count 222, MPV 11.0, Immature Gran % (Auto) 0.600, Neut % (Auto) 61.6, Lymph % (Auto) 22.8, [place] % (Auto) 13.1 H, Eos % (Auto) 1.5, Baso % (Auto) 0.4, Absolute Neuts (auto) 5.3, Nucleated RBC % 0 09/05/19 05:36: Sodium 138, Potassium 3.7, Chloride 103, Carbon Dioxide 29.0, Anion Gap 6, BUN 35 H, Creatinine 1.50 H, Est GFR (MDRD) Af Amer 60, Est GFR (MDRD) Non-Af 49 L, BUN/Creatinine Ratio 23.3 H, Glucose 108 H, Calcium 9.6 Rhythm: EKG: ECHO: Stress Test: Cardiac Cath: PCI: CT Surgery: Holter monitor: EPS: PPM: CXR: Chest CT Scan: Medical Necessity - Tobacco Use Smoking Status: Never smoker Assessment/Plan 1. CHF: Continue Lasix. 2D echo revealed decreased EF. We will proceed with coronary angiography to evaluate cause for CHF and elevated troponin. I will go ahead and change the beta-trisha to Coreg. Agree with adding lisinopril. We will hold the amlodipine to allow for increasing the Coreg and lisinopril. 2. Non-STEMI: Continue aspirin beta-trisha and statin. Coronary angiography on Friday.
[2019-09-05 12:41] LABS: Bedside Glucose 148 mg/dL (70-110)
[2019-09-05] MEDS: Heparin Injection (Vial) 5,000 UNIT/ML VIAL 5000 UNIT SC ×2 (14:31→22:09)
[2019-09-05] MEDS: 0.9% Saline Lock 10 ML Syringe IV (17:10)
[2019-09-05 17:20] LABS: Bedside Glucose 85 mg/dL (70-110)
[2019-09-05] MEDS: Doxazosin 1 MG Tablet 2 MG PO (22:03)
[2019-09-05] MEDS: Pravastatin 20 MG Tablet PO (22:04)
[2019-09-05] MEDS: Carvedilol 6.25 MG Tablet PO (22:11)
[2019-09-05 22:21] LABS: Bedside Glucose 93 mg/dL (70-110)
[2019-09-06] VITALS (16 sets, daily range): BP systolic 95–126; BP diastolic 56–78; PULSE 63–79; RESP 16–19; TEMP 36.4–36.9; O2SAT 93–97
[2019-09-06] MEDS: Nitroglycerin Oint 1 INCH PACKET TRANSDERM. ×4 (00:06→17:10)
[2019-09-06 06:15] LABS: Anion Gap 7 (5-15); BUN 48 mg/dL (7-18); BUN/Creat Ratio 28.9 RATIO (10-20); Calcium,Total 9.4 mg/dL (8.5-10.1); Chloride 102 mmol/L (98-107); Creatinine, Serum 1.66 mg/dL (0.70-1.30); EST Glomerular Filtration Rate 44 mL/min (>60); Est Glom Filt Rate - Afr Amer 53 mL/min (>60); Estimated Creatinine Clearance 35.66 ml/min; Glucose 126 mg/dL (74-106); Sodium Level 137 mmol/L (136-145)
[2019-09-06 06:40] LABS: Bedside Glucose 144 mg/dL (70-110)
[2019-09-06] MEDS: Lisinopril 20 MG Tablet PO (06:48)
[2019-09-06] MEDS: Carvedilol 6.25 MG Tablet PO (06:48)
[2019-09-06] MEDS: Aspirin 81 MG TAB.CHEW PO (06:48)
--- NOTE | 2019-09-06 10:32 | NURSING ---
bedside report given to LEOBARDO Martinez from [employer]
[2019-09-06] MEDS: Oxybutynin 5 MG Tablet PO (11:58)
[2019-09-06] MEDS: Empagliflozin 10 MG Tablet PO (11:59)
[2019-09-06] MEDS: Furosemide 40 MG/4 ML Vial IV (11:59)
[2019-09-06] MEDS: Insulin Lispro 100 UNIT/ML INSULN.PEN 35 UNIT SC ×2 (11:59→17:06)
[2019-09-06] MEDS: Insulin Lispro 100 UNIT/ML INSULN.PEN SC ×2 (12:00→17:07)
[2019-09-06] MEDS: 0.9% Normal Saline 1,000 ML 60 ML IV (12:00)
[2019-09-06 12:15] LABS: Bedside Glucose 200 mg/dL (70-110)
--- NOTE | 2019-09-06 12:34 | PCM.PN.CARD ---
Subjectve: Patient's shortness of breath is improved. Patient underwent coronary angiography today which revealed multivessel coronary artery disease. His creatinine has gone up slightly from 1.5-1.66. Patient is able to lie flat without any problems. Objective: Vital Signs Temp Pulse Resp BP Pulse Ox 98.1 F 79 16 121/61 H 97 09/06/19 12:10 09/06/19 12:30 09/06/19 12:30 09/06/19 12:30 09/06/19 12:30 Oxygen Flow Rate (L/min) 2 Oxygen Delivery Method Nasal Cannula Weight: 238 lb 5.115 oz Body Mass Index (BMI) 42.3 Intake and Output for Last 24 Hours 09/04/19 09/05/19 09/06/19 23:59 23:59 23:59 Intake Total 1030 / 1030 650 / 650 470 / 470 Output Total 2095 / 2095 850 / 850 650 / 650 Balance -1065 / -1065 -200 / -200 -180 / -180 General: Awake, Alert, Oriented x 3 HEENT: Atraumatic Oral: Moist Mucosa Neck: Supple Lungs: Rales - Dank Bases Cardiovascular: Normal S1, Normal S2 Abdomen: Soft Extremities: Trace RLE Edema, Trace LLE Edema Skin: No Rashes Psych/Mental Status: Appropriate 09/06/19 05:10: Sodium 137, Potassium 4.0, Chloride 102, Carbon Dioxide 28.0, Anion Gap 7, BUN 48 H, Creatinine 1.66 H, Est GFR (MDRD) Af Amer 53 L, Est GFR (MDRD) Non-Af 44 L, BUN/Creatinine Ratio 28.9 H, Glucose 126 H, Calcium 9.4 Rhythm: EKG: ECHO: Stress Test: Cardiac Cath: PCI: CT Surgery: Holter monitor: EPS: PPM: CXR: Chest CT Scan: Medical Necessity - Tobacco Use Smoking Status: Never smoker Assessment/Plan 1. CHF: Patient is doing well. We will hold the Lasix for today and consider restarting tomorrow. Patient has multivessel coronary artery disease. I suggest transferring patient to [facility] for evaluation by CT surgeon for possible CABG. 2. Non-STEMI: Continue aspirin beta-trisha and statin. Coronary angiography revealed multivessel coronary disease. Patient is being referred for CABG.
[2019-09-06 13:55] LABS: Pathologist Review Reviewed
--- NOTE | 2019-09-06 16:25 | CL.D_ITS ---
Patient Name: MANISHA FRITZ Study Date: 09/06/2019 Performing: Neel Madden MD Ht: 64 inches 163 cm : 1950 Wt: 238.4 lbs 108 kg Age: 69 Gender: male BSA: 2.11 PROCEDURE(S) PERFORMED [id number] CLINICAL PROFILE AND INDICATIONS Indications: ACS > 24 hrs Heart Failure: NYHA Class: 3, Newly Diagnosed: Yes, Heart Failure Type: Systolic Stress/Imaging Stress/Image Study Performed: No CAD Presentations: Non-STEMI. Symptom onset Date/Time: Time Not Available CONCLUSIONS Multivessel CAD. No significant RECOMMENDATIONS Surgery consult for coronary revascularization DESCRIPTION OF PROCEDURE The patient arrived to the procedure lab. The risks and benefits of the procedure as well as a full d escription of our services here and current unavailability of surgical backup were fully explained to the patient and/or their significant other prior to the catheterization. The Timeout was completed, verifying the correct patient and procedure. The patient's procedural site was prepped and draped in the usual fashion. Local anesthetic was given subcutaneously to right radial region with Lidocaine 2% . Using a modified Seldinger technique, arterial access was obtained via the right radial artery, a 6 Fr sheath was inserted. LV to AO pullback pressures were then recorded. Left Coronary Artery selecti ve angiography was performed in multiple views using a 5 Fr. 4.0 [place] catheter. Right Coronary Arter y selective angiography was then performed in multiple views using a 5 Fr. 4.0 [place] catheter.The art erial sheath was pulled and a TR Band was applied for hemostasis w/12ml air CORONARY ANGIOGRAPHY DOMINANCE: Right Dominant LEFT HEART ASSESSMENT Left Ventricular Ejection Fraction: Not assessed by LV gram due to renal insufficiency. Echo showed a n EF of around 30%. LEFT MAIN: Mild luminal irregularities LEFT ANTERIOR DESCENDING ARTERY: Moderate calcification PROX LAD: 90 % Stenosis DIAGONAL 1: Ostial - 90 % Stenosis. There is a small to medium sized branch of the D1 that is diffuse ly diseased in the proximal portion. CIRCUMFLEX ARTERY: severe diffuse disease RIGHT CORONARY ARTERY: MID RCA: 80 % Stenosis VALVE FINDINGS: No Aortic Valve Stenosis COMPLICATIONS No Complications PROCEDURE MEDICATIONS Versed 1 mg IV Fentanyl 50 mcg IV Oxygen: 2 L/min via nasal cannula Oxygen: 4 L/min via nasal cannula Heparin given IA 09/06/2019 11:08:58 Verapamil 2.5mg, Ntg 100mcgs, 3000 units of Heparin given IA 09/06/2019 11:08:58 IV Bolus: .9 NaCl 150 ml total 09/06/2019 11:13:47 SUMMARY OF HEMODYNAMIC DATA Time AIR REST ECG 10:48:08 LV 130/-4, 7 11:11:47 LV 129/-2, 8 11:11:53 LVp 137/-2, 11 11:12:00 AOp 105/48 (69) 11:12:05 AO 89/49 (68) SA 11:12:36 AO 98/57 (76) 11:17:28 Signed By Neel Madden MD On 09/06/2019 16:24:49 Neel Madden MD
[2019-09-06 17:25] LABS: Bedside Glucose 168 mg/dL (70-110)
--- NOTE | 2019-09-06 18:56 | NURSING ---
verbal report cLLED TO LEOBARDO HERNANDEZ IN [facility]
--- NOTE | 2019-09-09 18:22 | DS.PCM_ITS ---
Discharge Date and Diagnosis Date of Admission: 09/04/19 Date of Discharge: 09/06/19 - Primary Discharge Diagnosis #1 acute combined systolic and diastolic congestive heart failure-ejection fraction 35% #2 acute non-STEMI #3 triple-vessel occlusive coronary artery disease #4 type 2 diabetes #5 essential hypertension #6 stage III chronic kidney disease #7 hyperlipidemia #8 pulmonary hypertension #9 hypoxia secondary to acute combined systolic and diastolic congestive heart failure - Secondary Discharge Diagnosis Chronic Problems (Last Updated 09/06/19 @ 16:53 by Rachele Chapman) Chronic kidney disease (CKD) (Chronic) Type 2 diabetes mellitus (Chronic) Morbidly obese (Chronic) Dyslipidemia (Chronic) DME (diabetic macular edema) (Chronic) Benign essential HTN (Chronic) Hospital Course and Treatment Operations: None Procedures: 2-D Echocardiogram, Cardiac catheterization Summary of Care Provided: The patient is a 69 year old M who was seen in the emergency room at [facility] with chief complaint of shortness of breath. Work-up in the emergency room revealed the patient have an elevated white count of 14.5, glucose was 368, BUN was 33, creatinine was 1.76. Troponin was elevated at 0.329, beta natruretic peptide was elevated at 890, patient's lactic acid was elevated at 4.4. Chest x-ray showed pulmonary edema, patient was on BiPAP for short period of time in the emergency room but this was transitioned to nasal cannula O2. Patient was admitted to PCU, given IV Lasix and the patient had an echocardiogram performed which showed an EF of 35% with evidence of pulmonary hypertension. Patient's cardiac enzymes were cycled and these were elevated indicating a non-STEMI. Patient was taken for cardiac catheterization which revealed triple-vessel disease and it was recommended the patient be transferred to a tertiary facility for further care. On 09/06/2019, patient was seen and examined: On examination he appeared in good health and spirits. Vital signs as documented. Skin warm and dry and without overt rashes. Neck without JVD. Lungs clear. Heart exam notable for regular rhythm, normal sounds and absence of murmurs, rubs or gallops. Abdomen unremarkable and without evidence of organomegaly, masses, or abdominal aortic enlargement. Extremities nonedematous. Neuro: Cranial nerves II through XII are grossly intact, no focal motor deficits were noted, sensation to light touch and pinprick intact. Psych: Patient is alert and oriented x3, he does not appear anxious or depressed On 09/06/2019, patient was transferred in stable condition to [facility] for further medical care. - Physical Exam Vitals/I&O's: Vital Signs Temp Pulse Resp BP Pulse Ox 98.1 F 74 16 111/56 L 97 09/06/19 17:13 09/06/19 18:59 09/06/19 17:13 09/06/19 17:13 09/06/19 17:13 Oxygen Flow Rate (L/min) 2 Oxygen Delivery Method Nasal Cannula Weight: 108.1 kg Body Mass Index (BMI) 42.3 Microbiology Past 72 Hours 09/04/19 01:45 Blood Culture (Wb) - Left Hand Blood Culture - Final No growth in 5 days. 09/04/19 00:50 Blood Culture (Wb) - Anticubital Left Blood Culture - Final No growth in 5 days. Home Medications: Medications to take at Discharge Amlodipine [Norvasc] 10 mg PO DAILY 09/04/19 Atenolol [Tenormin (beta trisha)] 25 mg PO DAILY 09/04/19 Empagliflozin [Jardiance] 10 mg PO DAILY 09/04/19 Insulin Aspart [Novolog Flexpen] 35 units SUBCUT TID 09/04/19 Insulin Glargine,Hum.rec.anlog [Lantus] 70 units SUBCUT QHS 09/04/19 Metformin HCl [Metformin HCl ER] 1,000 mg PO BID 09/04/19 Oxybutynin [Ditropan] 5 mg PO DAILY 09/04/19 Pravastatin Sodium 20 mg PO QHS 09/04/19 Terazosin HCl [Hytrin] 2 mg PO QHS 09/04/19 hydroCHLOROthiazide [Hydrochlorothiazide] 6.25 mg PO DAILY 09/04/19 Primary Care Physician: Care Physician,No Primary [Primary Care Provider] - Disposition: Acute care Hospital Minutes spent on discharge:: 32 Patient Condition:: Stable Medical Necessity - Tobacco Use Smoking Status: Never smoker Meaningful Use Info Meaningful Use Diagnoses (Choose all that apply): CHF - CHF LUIS ALBERTO/ARB ordered at discharge?: Yes Reason LUIS ALBERTO/ARB not ordered?: Worsening renal disease, Worsening renal dysfunctn Documented LVEF (%): 35 Code Visit Inpatient E&M: 28849 Disch Hosp
== END 2019-09-06 20:10 | disposition short-term general hospital (02) | DRG 280 ==
LOC: ED 01:21 → PCU 02:55
PROVIDERS: Hospitalist; Admitting Provider Hospitalist; Emergency Provider Emergency Medicine; Visit Provider Internal Medicine
DX: I21.4 Non-ST elevation (NSTEMI) myocardial infarction (principal); I50.41 Acute combined systolic (congestive) and diastolic (congestive) heart failure; I13.0 Hypertensive heart and chronic kidney disease with heart failure and stage 1 through stage 4 chronic kidney disease, or unspecified chronic kidney disease; E87.2 Acidosis; Z68.41 Body mass index [BMI] 40.0-44.9, adult; E78.5 Hyperlipidemia, unspecified; E11.22 Type 2 diabetes mellitus with diabetic chronic kidney disease; E66.01 Morbid (severe) obesity due to excess calories; N18.3 Chronic kidney disease, stage 3 (moderate); R09.02 Hypoxemia; I25.10 Atherosclerotic heart disease of native coronary artery without angina pectoris; I27.20 Pulmonary hypertension, unspecified; Z79.4 Long term (current) use of insulin
CPT/HCPCS: 36415; 36600; 71045; 80048; 80053; 81001; 82803; 82962; 83605; 83880; 84484; 85025; 85610; 85730; 87040; 87086; 87804; 93005; 93306; 93454; 94002; 94667; 99152; 99153; 99251; 99285; J7030; Q9957; Q9967; A4216; C1769; C1894; G0463; J1940

== ENCOUNTER → 2020-01-14 11:08 | Outpatient (CLI) | payer MEDICARE, MEDICAID, SELFPAY ==
[2019-10-06 11:06] VITALS: BMI 39.6
[2020-01-14 12:49] LABS: Albumin, Serum 2.9 g/dL (3.2-5.0); BUN 23 mg/dL (7-18); Calcium,Total 9.1 mg/dL (8.5-10.1); Chloride 103 mmol/L (98-107); Creatinine, Serum 1.15 mg/dL (0.70-1.30); EST Glomerular Filtration Rate 67 mL/min (>60); Est Glom Filt Rate - Afr Amer 81 mL/min (>60); Glucose 223 mg/dL (74-106); Potassium 4.2 mmol/L (3.5-5.1); Sodium Level 136 mmol/L (136-145)
== END ==
PROVIDERS: Referring Provider Internal Medicine Nephrology; Visit Provider Internal Medicine Nephrology
DX: N18.3 Chronic kidney disease, stage 3 (moderate) (principal)
CPT/HCPCS: 36415; 80069

== ENCOUNTER → 2020-01-17 08:49 | Outpatient (CLI) | payer MEDICARE, MEDICAID, SELFPAY ==
[2019-10-06 11:06] VITALS: BMI 39.6
--- NOTE | 2020-01-17 08:50 | ECHOCS_ITS ---
Reason For Study: LV dysfunction Procedure This was a 2D Doppler, Color Flow transthoracic echocardiogram. The study was technically difficult. Exam performed in department. Left Ventricle Normal LV size. The estimated ejection fraction is 50 %. No evidence for diastolic dysfunction. mild septal hypokinesis. Right Ventricle Normal RV size. Normal systolic function. Atria The left atrium is mildly enlarged. Normal right atrium. No doppler evidence for ASD. Mitral Valve There is no mitral valve stenosis. No mitral valve insufficiency. Tricuspid Valve There is no tricuspid stenosis. Trivial tricuspid valve insufficiency. Unable to estimate RV systolic pressure due to insufficient tricuspid regurgitant envelope. Aortic Valve Trisinus/trileaflet aortic valve. Aortic sclerosis, no stenosis. There is no aortic stenosis. No aortic valve insufficiency. Pulmonic Valve There is no pulmonic valvular stenosis. No pulmonic valve insufficiency. Great Vessels Normal aortic root. Pericardium/Pleural No pericardial effusion. Medication 22 gauge I.V. with prn adaptor inserted into left arm. Diluted definity 3ml given slow IV push to enhance endocardial definition. MMode/2D Measurements & Calculations LVIDd: 5.8 cm IVSd: 0.84 cm Ao root diam: 3.5 cm LVIDs: 5.2 cm LVPWd: 1.2 cm RVDd: 3.9 cm FS: 8.9 % LAV(MOD-bp): 56.2 ml LA A4 area: 20.0 cm2 LA dimension(2D): 4.3 cm LAV(MOD-bp) Indexed: 26.8 ml/m2 LAV(MOD-sp2): 49.8 ml LAV(MOD-sp4): 59.4 ml RA A4 area: 15.1 cm2 Doppler Measurements & Calculations MV E max diony: 121.2 cm/sec Lat Peak E' Diony: 10.8 cm/sec Med Peak E' Diony: 3.8 cm/sec MV A max diony: 80.8 cm/sec E/E' lat: 11.2 E/E' med: 31.8 MV E/A: 1.5 Ao V2 max: 175.9 cm/sec LV V1 max: 88.5 cm/sec PA V2 max: 115.4 cm/sec Ao max P.4 mmHg LV V1 max P.1 mmHg Interpretation Summary The estimated ejection fraction is 50 %. No evidence for diastolic dysfunction. mild septal hypokinesis The study was technically difficult. Contrast injection was performed. Ordering Physician: Roberto Madden Referring Physician: Roberto Madden Performed By: Sara Hudson, TAY
== END ==
PROVIDERS: Referring Provider Specialist; Visit Provider Specialist
DX: G47.33 Obstructive sleep apnea (adult) (pediatric) (principal)
CPT/HCPCS: 93306; Q9957; A4216; C8929

== ENCOUNTER → 2020-02-21 12:46 | Outpatient (CLI) | payer MEDICARE, MEDICAID, SELFPAY ==
[2020-02-14 11:10] VITALS: BMI 40.6
--- NOTE | 2020-02-21 12:50 | CR.HP_ITS ---
CR - History & Physical - General Arrival date:: 02/21/20 Arrival time:: 12:53 Date of Referral:: 02/14/20 Date of CR Evaluation:: 02/21/20 Referring Physician: Dr. Neel Madden Primary Diagnosis: Z95.1 CABG - History of Present Cardiac Event Onset Date: Enter Onset Date of cardiac illnesses in Comment field below Coronary Artery Bypass Graft:: Yes - 09/14/2019 - Medications Home Medications: Ambulatory Orders Medication Instructions Recorded acetaminophen 500 mg tablet 1,000 mg PO Q6H PRN tab 10/01/19 aspirin 81 mg tablet,delayed 81 mg PO DAILY 10/01/19 release atorvastatin 80 mg tablet 80 mg PO QHS 10/01/19 clopidogrel 75 mg tablet 75 mg PO DAILY 10/01/19 metoprolol succinate 25 mg 25 mg PO DAILY 10/01/19 tablet,extended release 24 hr oxybutynin chloride 5 mg tablet 5 mg PO BID tab 10/01/19 tamsulosin 0.4 mg capsule 0.4 mg PO DAILY 10/01/19 tramadol 50 mg tablet 50 mg PO Q6H PRN 10/01/19 furosemide 20 mg tablet 20 mg PO DAILY PRN 02/14/20 insulin aspart U-100 100 unit/mL 20 unit SUBCUT QAC ml 02/14/20 (3 mL) subcutaneous pen insulin glargine 100 unit/mL 60 unit SUBCUT QHS ml 02/14/20 subcutaneous solution losartan 100 mg tablet 100 mg PO DAILY #30 tab 02/14/20 metformin 500 mg tablet 500 mg PO BID 02/14/20 - Allergies Allergies/Adverse Reactions: Allergies LUIS ALBERTO Inhibitors Adverse Reaction (Intermediate, Verified 02/14/20 10:48) cough simvastatin Adverse Reaction (Intermediate, Verified 02/14/20 10:48) cramps - Sleep Disorder Evaluation Hx of Sleep Apnea: Yes Do you snore loudly (louder than talking or can be heard through closed doors)?: No Do you often feel tired/ fatigued/ sleepy during daytime?: No Has anyone observed you stop breathing during sleep?: Yes History of Hypertension (for STOP score): Yes STOP Results: Positive Advanced Directives - Advanced Directives Power of Event Lighting Specialist: Yes Living Will: Yes Advance Directives Information Provided: Yes Advance Directives on File: Yes DNR Order?:: No Past Medical History - Covid-19 Screening Fever: No Unexplained muscle aches: No Current respiratory symptoms: No Upper respiratory infections symptoms: No Gastro-intestinal symptoms: No [id number] symptoms: No Has tested positive for COVID-19 in last 30 days: No Had contact w/person w/symptoms or Covid-19 (+) last 14 days: No Has High Risk Exposures ID'd by Health dept/Inf Control team: No 65 years or older:: Yes Lives in Assisted Living facility:: No Has a chronic lung disease or moderate to severe asthma:: No Has a serious heart condition:: Yes Immunocompromised:: No Severely obese (Body Mass Index of 40 or higher):: Yes Diabetic:: Yes Has chronic kidney disease undergoing dialysis:: Yes Has liver disease:: No - Past Medical Illness Medical History: Past Medical History (Last Reviewed 02/14/20 @ 11:[address] 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 Roberto Madden MD) History of coronary artery bypass graft (Chronic) Onset Date: ~09/14/19 Z95.1 BABB to LAD, SVG to PDA, SVG to OM 09/14/19 History of left heart catheterization (Acute) Onset Date: ~09/06/19 Z98.890 History of ear surgery Z98.890 wire inserted into right ear History of bilateral cataract extraction Z98.41, Z98.42 History of elbow surgery Z98.890 Right X 2 History of eye surgery Z98.890 laser History of hernia repair Z98.890, Z87.19 Right side(ruptured) History of tonsillectomy and adenoidectomy Z98.890 Surgical History: herniorrhaphy, - - Elbow surgery x2 - Family History Summary Family History: Family History (Last Reviewed 02/14/20 @ 11:[address] Roberto Madden MD) Father Diabetes Hypertension Hyperlipidemia Mother Hypertension Diabetes Sister Diabetes Social History - Smoking History Smoking Status: Never smoker Hx Tobacco Use: No Hx Smoking Exposure: No - Alcohol Use Alcohol Usage: No - Substance Abuse Hx Substance Use: No - Occupation Occupation (List type of work in comments):: Employed Hours worked per day:: 8 - Hobbies, Recreation, Social Activities Hobbies: None Recreational Activities: I am able to engage in all my recreational activities Social Environment - Status Marital Status: - Current Living Arrangements Living Environment:: Spouse - Children Do any of your children live nearby?: No - Safety Do you feel safe in your surroundings?: Yes - Assistance Do you need any assistance at home?: none Review of Systems - Review of Systems Hints: Right click = Denies ([place]). Left click = Reports ([place]) Review of Present Symptoms: Reports: Shortness of Breath at Rest, Shortness of Breath with Exertion, Fatigue, Appetite - Normal, Sleep - Normal. 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 Nutrition Referral for Diabetes: No - Obesity Height: 5 ft 4 in Weight:: 107.501 kg Weight in Pounds: 237.0 lbs Body Mass Index (BMI): 40.6 Nutritional Referral for Obesity: No - declines - Physical Inactivity Physical Inactivity: None - Risk Stratification Risk Guidelines: Lowest Risk: Risk Factor for Smoking, Moderate Risk: Risk Factor for Depression, Highest Risk: Risk Factor for Dyslipidemia, Risk Factor for Diabetes, Risk Factor for Obesity, Risk Factor for Hypertension, Risk Factor for Sedentary Lifestyle - For Smoking Smoking Risk Guidelines: Smoking Low Risk: None or quit greater than 6 months ago. Smoking Moderate Risk: Smoker or quit 6 months or less ago. Smoking High Risk: Smoker - For Dyslipidemia Dyslipidemia Risk Guidelines: Low Risk: Moderate Risk: High Risk: 15-25% fat 25.1-29% fat >/= 30% fat. <7% sat fat 7-9% sat fat >9% sat fat. <150 mg chol 150-299 mg chol >/= 300 mg chol. LDL <100 LDL 100-129 LDL >/= 130. Chol/HDL ratio <5.0 Chol/HDL ratio 5.0-6.0 Chol/HDL ratio >6.0. Triglycerides <100 Triglycerides 100-149 Triglycerides >/= 150 - For Diabetes Mellitus Diabetes Risk Guidelines: Diabetes Low Risk: HgA1c <6.5% and/or FBG <120. Diabetes Moderate Risk: HgA1c 6.6-7.9% and/or FBG 120-180. Diabetes High Risk: HgA1c >/= 8% and/or FBG >180 - For Obesity/Overweight Obesity/Overweight Risk Guidelines: Obesity Low Risk: BMI <25.0. Obesity Moderate Risk: BMI 25-29.9. Obesity High Risk: BMI >/= 30.0 - For Hypertension Hypertension Risk Guidelines: Hypertension Low Risk: Systolic <120 and Diastolic <80. Hypertension Moderate Risk: Systolic 120-139 and Diastolic 80-89. Hypertension High Risk: Systolic >/= 140 and Diastolic >/= 90 - For Sedentary Lifestyle Sedentary Lifestyle Risk Guidelines: Sedentary Lifestyle Low Risk: >/= 1,500 kcal/week. Sedentary Lifestyle Moderate Risk: 700-1,499 kcal/week. Sedentary Lifestyle High Risk: < 700 kcal/week - For Depression Depression Risk Guidelines: Depression Low Risk: Not clinically depressed. Depression Moderate Risk: Mildly depressed. Depression High Risk: Clinically depressed - Family History Family History: Family History (Last Reviewed 02/14/20 @ 11:[address] Roberto Madden MD) Father Diabetes Hypertension Hyperlipidemia Mother Hypertension Diabetes Sister Diabetes Motivation - Motivation to Participate On a scale of 1 to 10, how prepared are you to commit to attending program?: 10 What do you see as barriers to successfully being able to complete the program?: none What do you see as the benefits of succesfully completing the program? In other words, what do you hope to get out of participating in the program?: improved health Are there issues you are dealing with that will interfere with completing the program?: none Do you have a spouse or signficant other, family or friends who will help support you to complete the program?: family
--- NOTE | 2020-02-21 12:52 | CR.ITP_ITS ---
Diagnosis - General Information Admitting Diagnosis: Z95.1 CABG Personal Learning Style:: Audio/Visual Stage of change r/t lifestyle modifications:: Contemplation Gave educational material for:: Treating Heart Disease, Emotions & Heart Disease, Stress Management & Relaxation, Sleep Disorders & Heart Disease, How The Heart Works, What it means to have Heart Disease, How Coronary Artery Disease is Diagnosed, Heart Procedures, What Heart Medications Do, Risk Factors & Modifications, Living an Active Life, Nutrition - Education/Goals Cardiac Rehabilitation Goals: 1. Maintain the individual as the primary focus of care. 2. To improve the patient's quality of life. 3. Identification of cardiac risk factors and provide cardiac risk factor management. 4. Enhance the psychosocial status of the patient. 5. Reconditioning enough to allow the patient to resume customary activities. 6. Control symptoms of cardiac disease Personal Goals: Initial Assessment: Improve management of stress and emotions, Improve energy level, Participate in home exercise program, Get back to work, or to resume activities faster, Improve knowledge of cardiac disease, Improve muscle strength and endurance, Improve diet and eating habits (eat healthier), Control risk factors (learn risk factor modification) Scale for measuring improvement of personal goals: Enter appropriate number in Comments. 2 = Unchanged. 3 = Slightly Better. 4 = Moderate Improvement. 5 = Met my Goal - Diagnosis & Disease Process Plan/Interventions: Assist Pt to ID & engage in lifestyle modification to reduce CVD risk, Instruct on individual risk factors, Review symptoms of angina & emergency actions, Review secondary diagnosis & identify educational needs., Other see comment 30 day Reassessments:: Not Met 30 day Reassessments:: Not Met 30 day Reassessments:: Not Met 30 day Reassessments:: Not Met Final Reassessments:: Not Met - Safety Referral to Physical Therapy: No Referral to [facility] Case Management: No Fall Risk Assessed:: Yes Assistive Devices:: None Exercise - Initial Assessment - Visit Date of Eval: 02/21/20 - initial eval Mets: Pre-: >7 METS for 30 minutes by discharge - Physician Prescribed Exercise Modalities: Treadmill, Biodyne, Rower, NuStep, SciFit Frequency: 3x/week for 12 weeks [36 sessions] Intensity: 60-80% of age predicted maximum heart rate reserve Current METSs:: 3.0 Target Heart Rate:: 99-129 Resting Blood Pressure: 160/80 EKG Type: SR with premature atrial complexes - Outcomes & Goals Goals:: Verbalizes understanding of THR, RPE & goal METS by session 6, Documents in home exercise log/reports 30 min aerobic 5 day/wk by DC, Demonstrates accurate pulse taking by DC, Other additional outcome/goals: see below - Intervention & Plan Exercise Program Goals: Instruct on personal THR & RPE, Instruct on MET level & personal MET goal, Show patient to take own pulse /validate performance until accurate, Instruct on home exercise, Other additional plan/int - Physical Activity Home Exercise Physical Activity - Home Exercise: Safe Exercise, Warm-up, Self-monitoring, Cool-Down, Home Exercise > 30 min Daily, Sitting Time <3 hours/daily - Outcomes & Goals Outcomes/Goals: Demonstrates correct Warm-up/exercise Cool-Down (S3) if = 2.5 METs, Verbalizes symptoms of exercise intolerance by Session 3 (S3), Demonstrate safe equipment use (S3) & follows exercise prescrition (6), Other: See below - Intervention & Plan Plan/Intervention: Instruct warm-up & cool-down if exercising at > 2 METs, Instruct on symptoms of exercise intolerance & actions to take, Instruct & monitor on saf, Assess intial functional capacity & safety risk, Other See below Nutrition - Initial Assessment - Program Goals Nutrition Program Goals: LDL <100 optimal. 100 - 129 Near optimal. 130 - 159 Borderline High. 160 - 189 High. Total Cholesterol <200 desirable. 200 - 239 Borderline High. >/= 240 High. HDL < 40 Low >/=60 High. Triglycerides <150 desirable. <199 optimal. VlDL 5 - 40. HgbA1C <7%. BMI <25 Patient has diagnosis of Hyperlipidemia (ICD E78)?: Yes - Visit Date of Assessment:: 02/21/20 - initial eval - Cholesterol/Lipids Determine presence & major risk factors that modify LDL goal: Hypertension or hypertensive medication, Low HDL cholesterol <40 mg/dL*, Family history of premature CHD in Male < 55 years: female <65 yearsFa, Age men > 45 years; women >/= 55 years Outcomes/Goals: Pt IDs own risk factors & lifestyle modifications by Session 10, Verbalizes symptoms of angina & response by session 3., Pt independently manages, Other Additional Outcomes/Goals: Intervention/Plan: Advocate for lipid panel cholesterol medication if applicable, Instruct on personal lipid levels & lipid goals/NCEP guidelines, Instruct on cholesterol, Other additional plan/int - Diabetes (Other Core Measures) Diabetes Type: Diagnosis Type II ICD-10 E11 Outcomes/Goals:: Able to state symptoms of, Able to state, Able to state, Other additional Intervention/Plan:: Instruct on, Refer to, Instruct on, Other - Weight Mgt (Other Care) Height: 5 ft 4 in Weight:: 107.501 kg BMI: 40.6 Diagnosis Overweight/Obesity BMI> 30% ICD-10 E66: Yes Diagnosis High BMI/Morbid Obesity BMI> 35% ICD-10 Z68: Yes Outcomes/Goals: Pt sets, maintains & shows weight loss goal & trend during rehab, Other additional outcomes/goals Intervention/Plan: Instruct on ideal BMI & set weight loss goal w/patient, Assist pt to ID & incorporate diet changes for weight loss by S9, Refer to Structured Weight Loss program as appropriate, Encourage goal of using 250- 300dcal per session for weight loss, Other additional plan/interventions - Healthy Eating Habits Will attend diet classes:: Yes Outcomes/Goals:: Consume diet rich in vegs,fruits,whole grain/high fiber,fish,lean meat, Limit sat/trans fats,cholesterol & added salts & sugars, Other additional outcome/goals: Intervention/Plan:: Assess current eating habits, Other Additional plan/interventions - Education Gave educational materials for:: Signs & symptoms of hypoglycemia, Signs & symptoms of hyperglycemia, Relate diabetes to coronary artery disease, Healthy eating Medical - Initial Assessment - Visit Date of Eval: 02/21/20 - initial eval - Medication Compliance Preventative Medication(s):: Aspirin, Clopidogrel/P2Y12 inhibit, Statin/lipid H/O mental health issues: depression, anxiety, or addiction?: No Doesn?t believe in the benefits of treatment?: No Believes medications are unnecessary or harmful?: No Has a concern about medication side effects?: No Expresses concern over the cost of medications?: No Outcomes/Goals: Verbalizes medications,desired effect & common side effects @ DC, Pt self-reports following medication regimen, Keeps card in wallet w/medications listed by DC, Other additional outcome/goals: Interventions/plans: Instruct on medication effects & side effects, Review medication list w/patient every two weeks, Instruct importance of taking meds as ordered & assist problem solving, Other additional - Tobacco Use Tobacco Use: Non-smoker Do you use smokeless tobacco?: No - Hypertension Hypertension Diagnosis:: Hypertension ICD-10 I10 [employer] Hypertension Guidelines: [employer] Hypertension Guidelines. Normal BP Less than 120/80. Elevated BP 120/80. Hypertension Stage 1: BP 130-139/80-89. Hypertesnion Stage 2: BP 140 or higher/90 or higher. Hypertension Crisis: BP higher than 180/120 Outcomes/Goals: Able to verbalize/achieve optimal blood pressure <130/80, Incorporates diet changes & exercise for blood pressure control by DC, Other additional outcomes/goals - Tobacco Cessation Referral Smoking Cessation Referral:: No Individual Education/Counseling:: No Education Schedule Given:: Yes Psychosocial - Initial Assess - VIsit Date of Eval: 02/21/20 - initial eval History of previous Mental disease:: No - Target Goals Target Goals: Assess presence or absence of depression. Using a valid screening tool, maximizes coping skills. Positive support system - Psychosocial Test Tool Used:: [employer] QOL Cardiac, PHQ-9 Questionnaire phq-9 Severity: Severity. 1-4 Minimal Depression. 5-9 Mild Depression. 10-14 Moderate Depression. 15-19 Moderately Sever Depression. 20-27 Severe Depression. Rule: - Referral to Behavioral Health PS - Interventions: Yes Referral to Behavioral Health if PHQ-9 score >9:, Yes Referral to Physician if PHQ-9 if score is 5-9:, Yes Attend Stress Management Classes, No Referral to [facility] - Outcomes/Goals: See list Psychosocial Outcomes/Goals:: ID's personal stressors & 2 strategies to manage stress by discharge, Other Additional outcome/goals: - Intervention/Plan: See List Interventions/Plan:: Assess stressors,coping strategies & signs of derpression on admission, Instruct/assist pt to develop coping & personal stress Mgt strategies, Refer to Behavioral Health if appropriate, Refer to Physician if appropriate, Instruct patient to recognize signs & symptoms of depression, Instruct patient to recog, Other additional plan/intervention Patient Health Questionnaire Initial Assessment 1. Little interest or pleasure in doing things: Nearly every day 2. Feeling down, depressed, or hopeless: Several days 3. Trouble falling or staying asleep, or sleeping too much: Nearly every day 4. Feeling tired or having little energy: More than half the days 5. Poor appetite or overeating: More than half the days 6. Feeling bad about yourself -- or that you are a failure or have let yourself or your family down: Not at all 7. Trouble concentrating on things, such as reading the newspaper or watching t elevision: Not at all 8. Moving or speaking so slowly that other people could have noticed. Or the opposite - being so fidgety or restless that you have been moving around a lot more than usual: More than half the days 9. Thoughts that you would be better off , or of hurting yourself in some way: Not at all How difficult have these problems made it for you to do your work, take care of things at home, or get along with other people?: Somewhat difficult Total Score: 13 RADHA-Q SV Test - Statements CAD is a disease of the arteries in the heart: False Examples of risk factors for heart disease: True Angina is chest pain or discomfort: I Don't Know The benefits of resistance training include: True Eating more meat and dairy products: I Don't Know Anti-platelet medications such as aspirin are important: I Don't Know The only effective way to manage stress: True An exercise warm-up slowly increases heart rate: I Don't Know Prepared, processed foods usually have high sodium: True Depression is common after a heart attack: True The statin medications lower cholesterol: True To control blood pressure, lower the amount of sodium: True If someone gets chest discomfort during walking: False Transfats are partially hydrogenated vegetable oils: True Sleep apnea that is not treated increases the risk: False To control cholesterol, one should become a vegetarian: False Someone knows if he/she is exercising at the right level: I Don't Know Diabetes cannot be prevented with exercise & health eating: False Stress is a large risk for heart attack: True A diet that can help lower blood pressure is rich in: True - Total Score Total Correct Responses: 14 Self-Efficacy Initial Assessment We would like to know how confident you are in doing certain activities. Please select your confidence level for:: Select your confidence level for the [facility] using the scale 1-10 where 1 is not at all confident and 10 is totally confident. Your score is the average of all 6 responses. Fatigue: How confident are you that you can keep the fatigue caused by your disease from interfering with the things you want to do? Select Number: 1 Physical Discomfort or Pain: How confident are you that you can keep the physical discomfort or pain of your disease from interfering with the things you want to do? Select Number: 1 Emotional Distress: How confident are you that you can keep the emotional distress caused by your disease from interfering with the things you want to do? Select Number: 3 Other Symptoms or Health Problems: How confident are you that you can keep other symptoms or health problems from interfering with the things you want to do? Select Number: 3 Different Tasks and Activities: How confident are you that you can do the different tasks and activities needed to manage your health condition so as to reduce your need to see a doctor? Select Number: 1 Medication: How confident are you that you can do things other than just taking medication to reduce how much your illness affects your everyday life? Select Number: 3 Total Score:: 2 Nutrition Survey - Nutrition Survey Instructions Scoring Instructions: Scoring is as follows: Yes = 1 points. No = 0 point. Patient score that is >/=12 is considered to be at potential nutritional risk and could benefit from a referral to a registered dietitian. - Nutrition Survey Initial Have you lost >10 lbs over the past 2 months without trying?: Yes Are you following a special diet at home for diabetes, low fat, or low salt?: Yes Are you interested in meeting with a dietitian for help understanding your diet?: No Do you eat less than 3 meals a day?: Yes Do you eat fatty meats (denson, sausage, ribs, etc), fried foods, desserts, large amounts of salad dressings, margarine, butter, or cheese most days?: Yes Do you have food allergies? [Enter types in comment field]: No Do you eat in restaurants more than 3 times a week?: Yes Do you season food with salt, seasoning salt, or garlic salt?: No Do you used canned, boxed, frozen meals, or soups, seasoning packets?: No Total Score:: 5
[2020-02-21 14:19] VITALS: BP 160/80; PULSE 80; O2SAT 95; BMI 40.6
== END ==
PROVIDERS: Referring Provider Specialist; Visit Provider Specialist
DX: I25.10 Atherosclerotic heart disease of native coronary artery without angina pectoris (principal); G47.33 Obstructive sleep apnea (adult) (pediatric); I25.5 Ischemic cardiomyopathy; E11.22 Type 2 diabetes mellitus with diabetic chronic kidney disease; I13.0 Hypertensive heart and chronic kidney disease with heart failure and stage 1 through stage 4 chronic kidney disease, or unspecified chronic kidney disease; N18.9 Chronic kidney disease, unspecified; I50.9 Heart failure, unspecified; E66.01 Morbid (severe) obesity due to excess calories; Z68.41 Body mass index [BMI] 40.0-44.9, adult; E11.311 Type 2 diabetes mellitus with unspecified diabetic retinopathy with macular edema; K57.90 Diverticulosis of intestine, part unspecified, without perforation or abscess without bleeding; G24.8 Other dystonia; E78.5 Hyperlipidemia, unspecified; H90.5 Unspecified sensorineural hearing loss; G51.0 Bell's palsy; Z99.89 Dependence on other enabling machines and devices; Z95.1 Presence of aortocoronary bypass graft; Z79.82 Long term (current) use of aspirin; Z79.02 Long term (current) use of antithrombotics/antiplatelets; Z79.4 Long term (current) use of insulin; Z79.84 Long term (current) use of oral hypoglycemic drugs; Z79.899 Other long term (current) drug therapy

== ENCOUNTER → 2020-02-25 12:21 | Outpatient (CLI) | payer MEDICARE, MEDICAID, SELFPAY ==
[2019-10-06 11:06] VITALS: BMI 39.6
[2020-02-21 14:19] VITALS: BMI 40.6
--- NOTE | 2020-02-25 12:36 | US_ITS ---
STUDY: RENAL ULTRASOUND - COMPLETE REASON FOR EXAM: Male, 69 years old. CKD -- FREQUENCY -- LEAKING TECHNIQUE: Ultrasound evaluation of the kidneys was performed with real-time and static quinn-scale imaging. COMPARISON: None. FINDINGS: RIGHT KIDNEY: Normal location of the right kidney, which is normal in size. The right kidney measures 11.6 cm x 5.8 cm x 5.0 cm. There is a normal cortex of the right kidney. The renal cortex measures 1.7 cm. There is no right renal mass or cyst. There are no right renal calculi. There is no right hydronephrosis. DISTAL RIGHT URETER: There is non-visualization of the distal right ureter. There is no demonstrated right ureterovesical junction calculus. There is a visualized right ureteral jet. LEFT KIDNEY: Normal location of the left kidney, which is normal in size. The left kidney measures 10.9 cm x 5.2 cm x 5.0 cm. There is a normal cortex of the left kidney. The renal cortex measures 1.4 cm. There is no left renal mass or cyst. There are no left renal calculi. There is no left hydronephrosis. DISTAL LEFT URETER: There is non-visualization of the distal left ureter. There is no demonstrated left ureterovesical junction calculus. There is a visualized left ureteral jet. BLADDER: The distended urinary bladder has a volume of 160 ml. There is a normal wall thickness of the distended urinary bladder. There is no demonstrated mass within the urinary bladder. There are no demonstrated bladder calculi. US/Kidney and Bladder IMPRESSION: Normal ultrasound of the kidneys and urinary bladder. Electronically Signed: Mike Vega, at 14:48 EDT , Service support ,
== END ==
PROVIDERS: Referring Provider Internal Medicine Nephrology; Visit Provider Internal Medicine Nephrology
DX: N18.3 Chronic kidney disease, stage 3 (moderate) (principal)
CPT/HCPCS: 76770

== ENCOUNTER → 2020-03-10 16:19 | Outpatient (CLI) | payer MEDICARE, MEDICAID, SELFPAY ==
[2020-02-21 14:19] VITALS: BMI 40.6
[2020-03-10 17:41] LABS: Color, Urine Yellow (Yellow); Glucose, Dipstick Normal (Normal); Ketone-Dipstick Negative (Negative); Leukocyte Esterase-Dipstick 500 /ul (Negative); Nitrite-Dipstick Negative (Negative); Occult Blood-Urine 50 /ul (Negative); Protein-Dipstick 100 mg/dl (Negative); Urine Bilirubin Dipstick Negative (Negative); Urine Clarity Cloudy (Clear); Urine Urobilinogen Normal (Normal)
== END ==
PROVIDERS: Referring Provider Internal Medicine Nephrology; Visit Provider Internal Medicine Nephrology
DX: R30.9 Painful micturition, unspecified (principal)
CPT/HCPCS: 81001; 81002; 87077; 87086; 87088; 87186

== ENCOUNTER 2020-03-27 11:30 | Outpatient (RCR) | payer MEDICARE, MEDICAID, SELFPAY ==
[2020-02-21 14:11] VITALS: BMI 40.6
--- NOTE | 2020-03-23 07:01 | CR.ITP_ITS ---
Exercise - 30-day Assessment - Visit Date of Eval: 03/23/20 Session #:: 7 - Physician Prescribed Exercise Modalities: Treadmill, Airdyne, NuStep Frequency: 3x/week for 12 weeks [36 sessions] Intensity: 60-80% of age predicted maximum heart rate reserve Current METSs:: 2.0 Target Heart Rate:: 99-129 Current RPE:: 12 Maximum Excercise HR:: 119 Resting Blood Pressure: 150/88 - uncontrolled Maximum Exercise Blood Pressure: 164/80 EKG Type: NSR to sinus tach w occas PVCs, ventricular bigeminy, ventricular couplets - Outcomes & Goals Goals:: Verbalizes understanding of THR, RPE & goal METS by session 6, Documents in home exercise log/reports 30 min aerobic 5 day/wk by DC, Demonstrates accurate pulse taking by DC - Intervention & Plan Exercise Program Goals: Instruct on personal THR & RPE, Instruct on MET level & personal MET goal, Show patient to take own pulse /validate performance until accurate, Instruct on home exercise - 30-day Reassessments 30 day Reassessments:: Progressing - Physical Activity Home Exercise Physical Activity - Home Exercise: Safe Exercise, Warm-up, Self-monitoring, Cool-Down, Home Exercise > 30 min Daily, Sitting Time <3 hours/daily - Outcomes & Goals Outcomes/Goals: Demonstrates correct Warm-up/exercise Cool-Down (S3) if = 2.5 METs, Verbalizes symptoms of exercise intolerance by Session 3 (S3), Demonstrate safe equipment use (S3) & follows exercise prescrition (6) - Intervention & Plan Plan/Intervention: Instruct warm-up & cool-down if exercising at > 2 METs, Instruct on symptoms of exercise intolerance & actions to take, Instruct & monitor on saf, Assess intial functional capacity & safety risk - 30-day Reassessments 30 day Reassessments:: Progressing Nutrition - 30-Day Assessment - Program Goals Nutrition Program Goals: LDL <100 optimal. 100 - 129 Near optimal. 130 - 159 Borderline High. 160 - 189 High. Total Cholesterol <200 desirable. 200 - 239 Borderline High. >/= 240 High. HDL < 40 Low >/=60 High. Triglycerides <150 desirable. <199 optimal. VlDL 5 - 40. HgbA1C <7%. BMI <25 Patient has diagnosis of Hyperlipidemia (ICD E78)?: Yes - Visit Date of Assessment:: 03/23/20 Session #:: 7 - Cholesterol/Lipids Triglycerides (mg/dL): 0 - no recent labs Determine presence & major risk factors that modify LDL goal: Hypertension or hypertensive medication, Age men > 45 years; women >/= 55 years Outcomes/Goals: Pt IDs own risk factors & lifestyle modifications by Session 10, Verbalizes symptoms of angina & response by session 3., Pt independently manages Intervention/Plan: Instruct on personal lipid levels & lipid goals/NCEP guidelines, Instruct on cholesterol Referral to dietitian:: Yes 30-day Reassessments:: Progressing - Diabetes (Other Core Measures) Diabetes Type: Diagnosis Type II ICD-10 E11 Insulin dependent injection/pump?: Yes Non-Insulin Dependent?: Yes Referral to Diabetic Clinic:: Yes Outcomes/Goals:: Able to state symptoms of, Able to state, Able to state Intervention/Plan:: Instruct on, Refer to, Instruct on 30-day Reassessments:: Progressing - Weight Mgt (Other Care) Not Applicable: No Height: 5 ft 4 in Weight:: 240 lb 8 oz BMI: 41.3 Diagnosis Overweight/Obesity BMI> 30% ICD-10 E66: Yes Diagnosis High BMI/Morbid Obesity BMI> 35% ICD-10 Z68: Yes Outcomes/Goals: Pt sets, maintains & shows weight loss goal & trend during rehab Intervention/Plan: Instruct on ideal BMI & set weight loss goal w/patient, Assist pt to ID & incorporate diet changes for weight loss by S9, Refer to Structured Weight Loss program as appropriate, Encourage goal of using 250- 300dcal per session for weight loss 30 day Reassessments:: Progressing - Healthy Eating Habits Will attend diet classes:: Yes Outcomes/Goals:: Consume diet rich in vegs,fruits,whole grain/high fiber,f sofiya,lean meat, Limit sat/trans fats,cholesterol & added salts & sugars Intervention/Plan:: Assess current eating habits 30-day Reassessments:: Progressing - Education Gave educational materials for:: Healthy eating Medical- 30-Day Assessment - Visit Date of Eval: 03/23/20 Session #:: 7 - Medication Compliance Preventative Medication(s):: Aspirin, Clopidogrel/P2Y12 inhibit, Statin/lipid, Beta trisha H/O mental health issues: depression, anxiety, or addiction?: No Doesn?t believe in the benefits of treatment?: No Believes medications are unnecessary or harmful?: No Has a concern about medication side effects?: No Expresses concern over the cost of medications?: No Outcomes/Goals: Verbalizes medications,desired effect & common side effects @ DC, Pt self-reports following medication regimen, Keeps card in wallet w/medications listed by DC Interventions/plans: Instruct on medication effects & side effects, Review medication list w/patient every two weeks, Instruct importance of taking meds as ordered & assist problem solving 30-day Reassessments:: Progressing - Tobacco Use Tobacco Use: Non-smoker - Hypertension Hypertension Diagnosis:: Hypertension ICD-10 I10 Resting Blood Pressure:: 150/88 - uncontrolled w/medications [employer] Hypertension Guidelines: [place] [employer] Hypertension Guidelines. Normal BP Less than 120/80. Elevated BP 120/80. Hypertension Stage 1: BP 130-139/80-89. Hypertesnion Stage 2: BP 140 or higher/90 or higher. Hypertension Crisis: BP higher than 180/120 Peak Exercise Blood Pressure:: 164/80 Outcomes/Goals: Able to verbalize/achieve optimal blood pressure <130/80, Incorporates diet changes & exercise for blood pressure control by DC Interventions/plan: Instruct on optimal blood pressure, hypertension & medications, Instruct on effects of sodium, alcohol, stress, exercise &hypertension 30 day Reassessments:: Progressing - Tobacco Cessation Referral Smoking Cessation Referral:: No Individual Education/Counseling:: No Education Schedule Given:: Yes Psychosocial - 30-Day Assess - VIsit Date of Eval: 03/23/20 Session #:: 7 Not Applicable: No History of previous Mental disease:: Yes History of Emotional Disorders: Depression - Target Goals Target Goals: Assess presence or absence of depression. Using a valid screening tool, maximizes coping skills. Positive support system - Psychosocial Test Tool Used:: Tito Berry QOL Cardiac, PHQ-9 Questionnaire phq-9 Severity: Severity. 1-4 Minimal Depression. 5-9 Mild Depression. 10-14 Moderate Depression. 15-19 Moderately Sever Depression. 20-27 Severe Depres kathrin. Rule: See PHQ-9 Score: 13 - moderate depression per phq-9 score - Referral to Behavioral Health PS - Interventions: Yes Attend Stress Management Classes, No Referral to Behavioral Health if PHQ-9 score >9:, No Referral to [facility], No Referral to Physician if PHQ-9 if score is 5-9: - Outcomes/Goals: See list Psychosocial Outcomes/Goals:: ID's personal stressors & 2 strategies to manage stress by discharge - Intervention/Plan: See List Interventions/Plan:: Assess stressors,coping strategies & signs of derpression on admission, Instruct/assist pt to develop coping & personal stress Mgt strategies, Instruct patient to recognize signs & symptoms of depression, Instruct patient to recog - 30-day Reassessments: 30 day Reassessments:: Progressing Patient Health Questionnaire 30-Day Re-eval Assessment 1. Little interest or pleasure in doing things: Nearly every day 2. Feeling down, depressed, or hopeless: Several days 3. Trouble falling or staying asleep, or sleeping too much: Nearly every day 4. Feeling tired or having little energy: More than half the days 5. Poor appetite or overeating: More than half the days 6. Feeling bad about yourself -- or that you are a failure or have let yourself or your family down: Not at all 7. Trouble concentrating on things, such as reading the newspaper or watching television: Not at all 8. Moving or speaking so slowly that other people could have noticed. Or the opposite - being so fidgety or restless that you have been moving around a lot more than usual: More than half the days 9. Thoughts that you would be better off , or of hurting yourself in some way: Not at all How difficult have these problems made it for you to do your work, take care of things at home, or get along with other people?: Somewhat difficult Total Score: 13 Self-Efficacy 30-Day Re-eval Assessment We would like to know how confident you are in doing certain activities. Please select your confidence level for:: Select your confidence level for the following using the scale 1-10 where 1 is not at all confident and 10 is totally confident. Your score is the average of all 6 responses. Fatigue: How confident are you that you can keep the fatigue caused by your disease from interfering with the things you want to do? Select Number: 2 Physical Discomfort or Pain: How confident are you that you can keep the physical discomfort or pain of your disease from interfering with the things you want to do? Select Number: 2 Emotional Distress: How confident are you that you can keep the emotional distress caused by your disease from interfering with the things you want to do? Select Number: 3 Other Symptoms or Health Problems: How confident are you that you can keep other symptoms or health problems from interfering with the things you want to do? Select Number: 3 Different Tasks and Activities: How confident are you that you can do the different tasks and activities needed to manage your health condition so as to reduce your need to see a doctor? Select Number: 2 Medication: How confident are you that you can do things other than just taking medication to reduce how much your illness affects your everyday life? Select Number: 4 Total Score:: 2
[2020-03-23 07:09] VITALS: BP 150/88; BP 164/80; BMI 41.3
== END 2020-03-27 23:59 ==
LOC: CR 11:30
PROVIDERS: Referring Provider Specialist; Visit Provider Specialist
DX: Z95.1 Presence of aortocoronary bypass graft (principal); I25.10 Atherosclerotic heart disease of native coronary artery without angina pectoris; I25.5 Ischemic cardiomyopathy; E11.9 Type 2 diabetes mellitus without complications
CPT/HCPCS: 93798

== ENCOUNTER 2020-04-12 11:01 | Observation (INO) | payer OTHER, MEDICARE, MEDICAID, SELFPAY ==
[2020-02-21 14:19] VITALS: BMI 40.6
[2020-03-23 07:09] VITALS: BMI 41.3
[2020-04-12] VITALS (11 sets, daily range): BP systolic 147–172; BP diastolic 71–92; PULSE 78–93; RESP 16–23; TEMP 36.6–36.9; O2SAT 94–97; BMI 43.4; BMI 40.8; BMI 40.9
--- NOTE | 2020-04-12 11:03 | EKG12_ITS ---
Test Reason : Blood Pressure : / mmHG Vent. Rate : 082 BPM Atrial Rate : 082 BPM P-R Int : 132 ms QRS Dur : 112 ms QT Int : 410 ms P-R-T Axes : 064 -36 071 degrees QTc Int : 479 ms Normal sinus rhythm Left axis deviation Incomplete right bundle branch block Abnormal ECG Confirmed by TOSHIA KAMINSKI, CRYSTAL ([id number]), editor trade journal LARRY PAULA ([id number]) on 04/13/2020 1:07:30 PM Referred By: JIM Confirmed By:CRYSTAL POPE MD
[2020-04-12 11:16] LABS: Absolute Lymphocyte Count 1.94 X10^3/uL (0.83-4.51); Absolute Neutrophil Count 4.8 X10^3/uL (2.0-7.7); Basophil# 0.03 X10^3/uL; Basophil% 0.4 % (0-1); Eosinophil# 0.18 X10^3/uL; Eosinophils% 2.2 % (0-5); Hematocrit 38.4 % (40-54); Hemoglobin 11.9 g/dL (13.0-16.5); Lymphocyte # 1.94 X10^3/ul (4.0); Lymphocyte % 24.2 % (19-41); Mean Corpuscular Hgb 26.7 pg (27.0-32.0); Mean Corpuscular Volume 86.3 fL (80-94); Mean Platelet Vol. 11.5 fl (6.2-12.0); Monocyte# 1.09 X10^3/uL; Monocyte% 13.6 % (0-10); NRBC Flagged by Analyzer 0 % (0-5); Neutrophil # 4.76 X10^3/uL (2.7-7.7); Neutrophil % 59.4 % (47-70); Platelet Count 231 K/mm3 (150-450); RBC Distribution Width CV 15.5 % (11.6-14.6); RBC Distribution Width SD 48.9 fl (35.1-43.9); Red Blood Count 4.45 M/mm3 (4.6-6.2)
--- NOTE | 2020-04-12 11:16 | RAD_ITS ---
STUDY: X-RAY CHEST REASON FOR EXAM: Male, 70 years old. SYNCOPAL EPISODE. POS LOC TECHNIQUE: Single AP portable view of the chest. COMPARISON: Comparison is made with prior study of September 04 2019. FINDINGS: EKG electrodes are seen. Minimal residual increased linear markings at the right lung base suggestive of mild atelectasis and/or scarring. There is no demonstrated pleural abnormality. Sternal cerclage wires and vascular clips are present from a prior sternotomy and coronary artery bypass graft procedure (CABG). Normal mediastinum and megan. Normal visualized pulmonary arteries. Normal visualized aortic arch and descending thoracic aorta. Normal visualized thoracic spine. Normal visualized ribs, clavicles, and shoulders. There is no demonstrated abnormality of the visualized soft tissue structures of the upper abdomen. RAD/Chest 1 View (Portable) IMPRESSION: No acute abnormalities. Electronically Signed: Mike eVga, at 12:14 EDT , Service support ,
--- NOTE | 2020-04-12 11:22 | ED.DCSUM_ITS ---
- ER Visit Summary Date of Service: 04/12/20 Chief Complaint: Passed out going to cardiac rehab History of Present Illness: The patient is a 70 M with prior IA with prior sternotomy and CABG. Also history of ischemic cardiomyopathy.. Recent cardiac catheterization in August. Patient is also diabetic and history of hypertension and renal insufficiency. Says he was feeling fine today was going to cardiac rehab in the next thing he realized he was laying on the floor. A CODE BLUE was called. Patient came to. According note physician that was there there was no seizure activity but he did have a true syncopal event. Patient denies any injuries. He reportedly hit his head on a treadmill when he fell down. He denies being on any blood thinners. Physical Examination: Older male no acute distress vital signs are stable afebrile. Pulse ox 97% on 2 L. He does not look septic or toxic. H EENT exam pupils round reactive light. No facial trauma no scalp trauma or hematomas. No laceration. No tenderness. C-spine nontender. Trachea midline. He has normal range of motion of his neck he has no spinal tenderness. Lungs clear to auscultation bilaterally. Heart regular rhythm rate about 85 no murmur. Chest wall nontender. Abdomen soft nontender. Mildly obese. No peritoneal signs. No pulsatile mass. Patient is moving all 4 extremities. 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 Normal dorsi plantarflexion. No deformities. Nontender. Back nontender. Skin is unremarkable. Neurologically is awake and alert. He is following commands. He is answering questions. He is moving all 4 extremities. He has no significant motor deficit. He knows the month and the year and the present [place]. There is no slurring of the speech. Test Results: CBC shows a white count 8 hemoglobin of 11. Chemistries unremarkable gap of 3 creatinine 1.3 which is his baseline renal insufficiency. Troponin normal EKG sinus rhythm rate 82 with a incomplete right bundle branch block. No acute signs of IA or ischemia. I did see the EKG after he had a syncopal event in cardiac rehab and skeletal artifact on it but it shows a sinus rhythm rate of 94 with a right bundle branch block. Chest x-ray portable 1 view shows normal cardiac silhouette and a prior sternotomy. No acute abnormalities. Emergency Department Course and Treatment: Older male with acute syncopal episode. He also fell and has a closed head injury. Cardiac work-up with a CAT scan of his head. Treatment Plan: Repeat exam patient is doing well at 11:55 AM. He and I discussed his syncopal event and he is willing to be admitted. I spoke to the hospitalist and he will be made in observation. Disposition: Admission Impression: Acute syncope History of prior IA History of insulin-dependent diabetes, renal insufficiency and hypertension This note was generated with [employer] dictation software. It may contain incorrect words, spelling, and punctuation that were not noted in review of the chart prior to signing ED Disposition - Plan for ED Patient: [facility] [Primary [facility] Provider] -
--- NOTE | 2020-04-12 11:27 | CT_ITS ---
STUDY: CT BRAIN WITHOUT CONTRAST REASON FOR EXAM: Male, 70 years old. SYNCOPE @ CARDIAC REHAB, HEAD INJURY RADIATION DOSAGE (If Supplied By Facility): CTDIvol = ( 60.81 ) mGy, DLP = ( 1021.47 ) mGycm TECHNIQUE: Transaxial CT imaging of the brain was performed without administration of intravenous contrast material. Individualized dose optimization techniques were used for this CT. COMPARISON: 2012 FINDINGS: Normal soft tissue structures. Normal calvarium. There is mild cerebral atrophy with widening of the extra-axial spaces and ventricular dilatation. There are areas of decreased attenuation within the white matter tracts of the supratentorial brain, consistent with microvascular disease changes. Normal basal ganglia and thalami. Normal brainstem. Normal cerebellum. There is no intracranial hemorrhage. There are no findings of an acute ischemic infarction. Normal visualized paranasal sinuses. CT/Brain/Head without Contrast IMPRESSION: Chronic involutional changes of the brain. Electronically Signed: Klaus Fuentes MD at 12:05 EDT , Service support ,
[2020-04-12 11:32] LABS: Anion Gap 3 (5-15); BUN 21 mg/dL (7-18); Calcium,Total 9.2 mg/dL (8.5-10.1); Chloride 108 mmol/L (98-107); Creatinine, Serum 1.31 mg/dL (0.70-1.30); EST Glomerular Filtration Rate 58 mL/min (>60); Est Glom Filt Rate - Afr Amer 70 mL/min (>60); Estimated Creatinine Clearance 44.56 ml/min; Glucose 115 mg/dL (74-106); Potassium 4.5 mmol/L (3.5-5.1); Sodium Level 141 mmol/L (136-145)
--- NOTE | 2020-04-12 12:00 | NURSING ---
CALLED [facility], TALKED TO KASSANDRA. THEY ARE AWARE PATIENT IS BEING ADMITTED
--- NOTE | 2020-04-12 12:02 | PCM.HP.STD ---
Problem List (1) TELMA (obstructive sleep apnea) Status: Chronic Comment: Does not use cpap (2) Ischemic cardiomyopathy Status: Chronic (3) History of coronary artery bypass graft Status: Chronic Comment: BABB to LAD, SVG to PDA, SVG to OM 09/14/19 (4) Chronic kidney disease (CKD) Status: Chronic Qualifiers: Chronic kidney disease stage: stage 3 (moderate) Qualified Code(s): N18.3 - Chronic kidney disease, stage 3 (moderate) (5) Type 2 diabetes mellitus Status: Chronic Qualifiers: Diabetes mellitus jail insulin use: with jail use Diabetes mellitus complication status: with other specified complication Qualified Code(s): E11.69 - Type 2 diabetes mellitus with other specified complication; Z79.4 - residential (current) use of insulin (6) Morbidly obese Status: Chronic (7) DME (diabetic macular edema) Status: Chronic (8) Benign essential HTN Status: Chronic History of Present Illness Date of Admission: 04/12/20 Chief Complaint: Syncope -on the day of admission The patient is a 70 year old M with past medical history of CAD status post CABG in August 2019, hypertension, type II DM, morbid obesity, follows with Dr. Madden in the outpatient who comes in after a syncopal episode. Patient was walking to the cardiac rehab. He entered the cardiac rehab place. Soon after, he had a syncopal episode. Was reported to have hit his head against 1 of the machines. Initially he was unresponsive and a CODE BLUE was called. He awoke a few minutes later, able to remember where he was, moving all his extremities. He was sent to the emergency department subsequently. Patient denied feeling unwell prior to this event. He denied any diarrhea or vomiting or nausea or vomiting. He denied any sick contacts. 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 He had gone today to drive and denied having any symptoms. Vitals in the ED showed temperature of 98.3F, heart rate 85, blood pressure 172/92, respiratory rate was 22, SPO2 97% on 2 L. Patient was found to be mildly orthostatic. His WBC count is 8.0, hemoglobin 11.9, platelet count 231, sodium 141, potassium 4.5, chloride 108, bicarbonate 30, BUN 21, creatinine 1.31, devious creatinine was 1.15, HbA1c 7.6, magnesium 1.4. Chest x-ray was unremarkable. CT scan of the brain showed an acute evolving few changes. At the time of being seen, patient denied any new symptoms. Denied chest pain or dizziness or palpitations Past Medical History Past Medical History (Chronic Problems): Chronic Problems (Last Reviewed 02/14/20 @ 11:[address] Roberto Madden MD) TELMA (obstructive sleep apnea) (Chronic) Does not use cpap Ischemic cardiomyopathy (Chronic) History of coronary artery bypass graft (Chronic ~09/14/19) BABB to LAD, SVG to PDA, SVG to OM 09/14/19 Atherosclerosis of coronary artery of [place] heart without angina pectoris (Chronic) BABB to LAD, SVG to PDA, SVG to OM 09/14/19 Chronic kidney disease (CKD) (Chronic) Acute CHF (congestive heart failure) (Chronic) Type 2 diabetes mellitus (Chronic) Morbidly obese (Chronic) DME (diabetic macular edema) (Chronic) Benign essential HTN (Chronic) Medical History: Medical History (Last Reviewed 02/14/20 @ 11:[address] 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 TELMA on CPAP (Inactive) G47.33, Z99.89 Allergies LUIS ALBERTO Inhibitors Adverse Reaction (Intermediate, Verified 02/14/20 10:48) cough simvastatin Adverse Reaction (Intermediate, Verified 02/14/20 10:48) cramps Home Medications: Ambulatory Orders Medication Instructions Recorded acetaminophen 500 mg tablet 1,000 mg PO Q6H PRN tab 10/01/19 aspirin 81 mg tablet,delayed 81 mg PO DAILY 10/01/19 release atorvastatin 80 mg tablet 80 mg PO QHS 10/01/19 clopidogrel 75 mg tablet 75 mg PO DAILY 10/01/19 oxybutynin chloride 5 mg tablet 5 mg PO BID tab 10/01/19 tamsulosin 0.4 mg capsule 0.4 mg PO DAILY 10/01/19 tramadol 50 mg tablet 50 mg PO Q6H PRN 10/01/19 furosemide 20 mg tablet 20 mg PO DAILY PRN 02/14/20 insulin aspart U-100 100 unit/mL 20 unit SUBCUT TID ml 02/14/20 (3 mL) subcutaneous pen insulin glargine 100 unit/mL 60 unit SUBCUT QHS ml 02/14/20 subcutaneous solution losartan 100 mg tablet 100 mg PO DAILY #30 tab 02/14/20 metformin 500 mg tablet 500 mg PO BID 02/14/20 carvedilol 6.25 mg tablet 6.25 mg PO BID #60 tab 03/27/20 Surgical History: Surgical History (Last Reviewed 02/14/20 @ 11:[address] Roberto Madden MD) History of coronary artery bypass graft (Chronic) Onset Date: ~09/14/19 Z95.1 BABB to LAD, SVG to PDA, SVG to OM 09/14/19 History of left heart catheterization (Acute) Onset Date: ~09/06/19 Z98.890 History of ear surgery Z98.890 wire inserted into right ear History of bilateral cataract extraction Z98.41, Z98.42 History of elbow surgery Z98.890 Right X 2 History of eye surgery Z98.890 laser History of hernia repair Z98.890, Z87.19 Right side(ruptured) History of tonsillectomy and adenoidectomy Z98.890 Surgical History: coronary bypass surgery, herniorrhaphy, tonsillectomy, - - Elbow surgery x2, S/P ear and eye surgery Psychiatric History: No pertinent psych hx Lives: Spouse/ Significant Other Smoking Status: Never smoker Tobacco Use: Non-smoker Alcohol: None Drugs: None - *Family History Maternal Family History: Family History (Last Reviewed 02/14/20 @ 11:[address] Roberto Madden MD) Father Diabetes Hypertension Hyperlipidemia Mother Hypertension Diabetes Sister Diabetes History Items: Diabetes, Hypertension Paternal Family History: Family History (Last Reviewed 02/14/20 @ 11:[address] Roberto Madden MD) Father Diabetes Hypertension Hyperlipidemia Mother Hypertension Diabetes Sister Diabetes History Items: Diabetes, Heart Disease, Hypertension Review of Systems Constitutional: Denies: Anorexia, Chills, Fever, Malaise, Weakness, Weight Change, Fatigue Eyes: Denies: Blurred vision, Cataracts, Conjunctivae Inflammation, Pain, Redness HEENT: Denies: Difficulty Hearing, Difficulty Swallowing, Head Aches, Hearing Changes, Sinus Congestion, Sinus Drainage, Sore Throat Cardiovascular: Reports: Syncope. Denies: Chest Pain, Claudication, Orthopnea, Palpitations, Paroxysmal Noc. Dyspnea Respiratory: Denies: Cough, Shortness of breath at rest, Shortness of breath upon exertion, Sputum production Gastrointestinal: Denies: Abdominal Pain, Constipation, Hematemesis, Hematochezia, Nausea, Vomiting Genitourinary: Denies: Dysuria Musculoskeletal: Denies: Joint Pain, Joint stiffness, Joint swelling, Joint Tenderness Skin: Denies: Rash, Wounds Neurological: Denies: Difficulty swallowing, Focal weakness, Numbness, Tingling Psychiatric: Denies: Anxiety, Depression, Homicidal Ideations, Suicidal Ideations Hematologic/ Lymphatic: Denies: Easy Bruising, Easy Bleeding VTE Information - Inpt Only VTE Present on Admission: No VTE Pharm Prophylaxis ordered?: Yes - Physical Exam Vitals/I&O's: Vital Signs Temp Pulse Resp BP Pulse Ox 98.3 F 85 23 H 172/92 H 97 04/12/20 11:02 04/12/20 11:02 04/12/20 11:02 04/12/20 11:02 04/12/20 11:07 Oxygen Flow Rate (L/min) 2 Oxygen Delivery Method Nasal Cannula Weight: 114.7 kg Body Mass Index (BMI) 43.4 General: Alert, Oriented x3, Cooperative, No apparent distress, - - morbidly obese HEENT: Atraumatic, PERRLA, EOMI, Normocephalic Oral: Moist Mucosa Neck: Supple Lungs: Clear to auscultation, Normal air movement Cardiovascular: Regular rate, Regular Rhythm, Normal S1, Normal S2, No murmurs Abdomen: Bowel Sounds Present, Soft, Non Tender, Non-Distended, No Hepato-splenomegaly Extremities: No edema Skin: No rashes Musculoskeletal: No Tenderness to Palpation of Joints or Extremities Lymphatic: No Cervical, Supraclavicular, or Inguinal Adenopathy Neurological: Cranial nerves II-XII grossly intact, Neuro grossly intact Psych/Mental Status: Normal Affect, Appropriate Laboratory Results 04/12/20 11:00: WBC 8.0, RBC 4.45 L, Hgb 11.9 L, Hct 38.4 L, MCV 86.3, MCH 26.7 L, MCHC 31.0 L, RDW Std Deviation 48.9 H, RDW Coeff of [place] 15.5 H, Plt Count 231, MPV 11.5, Immature Gran % (Auto) 0.200, Neut % (Auto) 59.4, Lymph % (Auto) 24.2, [place] % (Auto) 13.6 H, Eos % (Auto) 2.2, Baso % (Auto) 0.4, Absolute Neuts (auto) 4.8, Absolute Lymphs (auto) 1.94, Nucleated RBC % 0 04/12/20 11:00: Sodium 141, Potassium 4.5, Chloride 108 H, Carbon Dioxide 30.0, Anion Gap 3 L, BUN 21 H, Creatinine 1.31 H, Estim Creat Clear Calc 44.56, Est GFR (MDRD) Af Amer 70, Est GFR (MDRD) Non-Af 58 L, BUN/Creatinine Ratio 16.0, Glucose 115 H, Calcium 9.2, Troponin I 0.020 Assessment/Plan All Active Problems (Last Reviewed 02/14/20 @ 11:[address] Roberto Madden MD) History of left heart catheterization (Acute ~09/06/19) 1. Syncope, unclear etiology for now, likely related to orthostatic hypotension versus possible arrhythmia Will admit to PCU, IV fluids, monitor on telemetry, 2D echo, cardiology consult 2. Hypomagnesemia, magnesium is 1.4, replace, recheck in a.m. 3. Recent CAD status post CABG, continue on aspirin, statin, Plavix 4. Hypertension, currently uncontrolled, on carvedilol and losartan We will increase carvedilol to 12.5 mg twice daily, continue to monitor vitals 5. Type II DM, insulin-dependent, HbA1c 7.6, continue current insulin regimen 6. BPH on Flomax 7. Morbid obesity, BMI 40.9, complicates care, lifestyle modification recommended 8. CKD stage III, creatinine is above his baseline, will continue to monitor 9. DVT prophylaxis with heparin subcu OBSV E&M: [id number] Initial observation care L3
--- NOTE | 2020-04-12 12:04 | NURSING ---
PCU PAINTSIL SYNCOPE, CABG HX, DM
[2020-04-12] MEDS: 0.9% Normal Saline 1,000 ML 100 ML IV ×2 (12:48→18:47)
[2020-04-12 12:52] LABS: Magnesium 1.4 mg/dL (1.6-2.6)
--- NOTE | 2020-04-12 13:16 | ECHOD_ITS ---
Reason For Study: Syncope Procedure This was a 2D Doppler, Color Flow transthoracic echocardiogram. Did not use Definity due to increased PAP. Exam performed portable in patient room. Left Ventricle Normal LV size. The estimated ejection fraction is 50-55 %. Stage 2 diastolic dysfunction. Flattening of the septum in systole and diastole consistent with pressure and volume overload. Right Ventricle Normal RV size. Normal systolic function. Atria The left atrium is mildly enlarged. Normal right atrium. No doppler evidence for ASD. Mitral Valve There is no mitral valve stenosis. Trivial mitral valve insufficiency. Tricuspid Valve There is no tricuspid stenosis. Mild to moderate (1-2+) tricuspid valve insufficiency. Pulmonary artery systolic pressure is 70-75 mmHg. Aortic Valve Trisinus/trileaflet aortic valve. There is no aortic stenosis. No aortic valve insufficiency. Pulmonic Valve There is no pulmonic valvular stenosis. Trivial pulmonic valve insufficiency. Great Vessels Normal aortic root. Pericardium/Pleural No pericardial effusion. MMode/2D Measurements & Calculations LVIDd: 5.4 cm IVSd: 1.1 cm Ao root diam: 3.4 cm LVIDs: 4.8 cm LVPWd: 1.2 cm RVDd: 4.7 cm FS: 11.3 % LAV(MOD-bp): 80.7 ml LA A4 area: 26.2 cm2 LA dimension(2D): 5.0 cm LAV(MOD-bp) Indexed: 38.3 ml/m2 LAV(MOD-sp2): 73.2 ml LAV(MOD-sp4): 84.1 ml RA A4 area: 19.7 cm2 Doppler Measurements & Calculations MV E max diony: 111.0 cm/sec Lat Peak E' Diony: 5.5 cm/sec Med Peak E' Diony: 3.7 cm/sec MV A max diony: 68.7 cm/sec E/E' lat: 20.2 E/E' med: 29.7 MV E/A: 1.6 Ao V2 max: 157.0 cm/sec LV V1 max: 96.5 cm/sec PA V2 max: 86.6 cm/sec Ao max P.9 mmHg LV V1 max P.7 mmHg Ao V2 mean: 108.5 cm/sec Ao mean P.2 mmHg Ao V2 VTI: 29.8 cm PI end-d diony: 112.7 cm/sec TR max diony: 406.5 cm/sec TR max P.1 mmHg Interpretation Summary The estimated ejection fraction is 50-55 %. Stage 2 diastolic dysfunction. Trivial mitral valve insufficiency. Mild to moderate (1-2+) tricuspid valve insufficiency. Pulmonary artery systolic pressure is 70-75 mmHg. Ordering Physician: Darlyn Shea Referring Physician: [facility] Performed By: Roof, Anna, RDCS, RVT
[2020-04-12] MEDS: Heparin Injection (Vial) 5,000 UNIT/ML VIAL 5000 UNIT SC ×2 (13:27→22:33)
[2020-04-12] MEDS: Magnesium Sulfate 4gm/100mL 4 GM/100 ML IV.SOLN. IV (13:56)
[2020-04-12] MEDS: 0.9% Saline Lock 10 ML Syringe IV ×3 (13:56→22:35)
[2020-04-12 14:02] LABS: Hemoglobin A1c 7.6 % (3.8-5.6)
[2020-04-12 14:14] LABS: AST(SGOT) 19 U/L (15-37); Alanine Aminotransfer ALT/SGPT 28 U/L (16-61); Albumin, Serum 2.8 g/dL (3.2-5.0); Alkaline Phosphatase 134 U/L (45-117); Bilirubin, Direct 0.22 mg/dL (0.00-0.30); Globulin 4.5 g/dL (2.2-4.2); Protein, Total 7.3 g/dL (6.4-8.2)
[2020-04-12 15:13] LABS: BNP,B-Type NATRIURETIC PEPTIDE 1373.6 pg/mL (0-100)
[2020-04-12] MEDS: Tamsulosin HCl 0.4 MG Capsule PO (16:53)
[2020-04-12 16:56] LABS: Bedside Glucose 121 mg/dL (70-110)
[2020-04-12] MEDS: Insulin Lispro 100 UNIT/ML INSULN.PEN 20 UNIT SC (16:59)
--- NOTE | 2020-04-12 18:14 | PCM.CONS.C ---
Reason for Consult Date of Consultation: 04/12/20 Reason for Consultation: Syncope History of Present Illness: 69-year-old male initially seen in the hospital in August 2019 when he had presented with ischemic cardiomyopathy with CHF. He underwent coronary angiography and then was referred for CABG. He underwent triple vessel CABG (BABB to LAD, SVG to PDA, SVG to OM) on 09/14/2019 at [facility]. His EF when he was in the hospital was 35%. He had a 2D echo 3 months after that which revealed an EF of 50%. At that time his RV systolic pressure could not be estimated. Today patient was on his way to cardiac rehab when he felt lightheaded and then passed out. He has been having shortness of breath and lower extremity swelling for a few days. He was supposed to be on Lasix. 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 Patient was admitted to the PCU and his BNP is elevated. His repeat 2D echo reveals preserved LV systolic pressure. However there is flattening of the interventricular septum and an RV systolic pressure of 70 to 75 mmHg. There is also new right bundle branch block on the EKG. Patient has some shortness of breath but is overall comfortable. Review of systems: All systems reviewed. All else is negative except that in the HPI. Past Medical History Allergies/Adverse Reactions: Allergies LUIS ALBERTO Inhibitors Adverse Reaction (Intermediate, Verified 02/14/20 10:48) cough simvastatin Adverse Reaction (Intermediate, Verified 02/14/20 10:48) cramps Home Medications: Ambulatory Orders Medication Instructions Recorded acetaminophen 500 mg tablet 1,000 mg PO Q6H PRN tab 10/01/19 aspirin 81 mg tablet,delayed 81 mg PO DAILY 10/01/19 release atorvastatin 80 mg tablet 80 mg PO QHS 10/01/19 clopidogrel 75 mg tablet 75 mg PO DAILY 10/01/19 oxybutynin chloride 5 mg tablet 5 mg PO BID tab 10/01/19 tamsulosin 0.4 mg capsule 0.4 mg PO DAILY 10/01/19 tramadol 50 mg tablet 50 mg PO Q6H PRN 10/01/19 furosemide 20 mg tablet 20 mg PO DAILY PRN 02/14/20 insulin aspart U-100 100 unit/mL 20 unit SUBCUT TID ml 02/14/20 (3 mL) subcutaneous pen insulin glargine 100 unit/mL 60 unit SUBCUT QHS ml 02/14/20 subcutaneous solution losartan 100 mg tablet 100 mg PO DAILY #30 tab 02/14/20 metformin 500 mg tablet 500 mg PO BID 02/14/20 carvedilol 6.25 mg tablet 6.25 mg PO BID #60 tab 03/27/20 Past Medical History (Chronic Problems): Chronic Problems (Last Reviewed 02/14/20 @ 11:[address] Roberto Madden MD) TELMA (obstructive sleep apnea) (Chronic) Does not use cpap Ischemic cardiomyopathy (Chronic) History of coronary artery bypass graft (Chronic ~09/14/19) BABB to LAD, SVG to PDA, SVG to OM 09/14/19 Atherosclerosis of coronary artery of [place] heart without angina pectoris (Chronic) BABB to LAD, SVG to PDA, SVG to OM 09/14/19 Chronic kidney disease (CKD) (Chronic) Acute CHF (congestive heart failure) (Chronic) Type 2 diabetes mellitus (Chronic) Morbidly obese (Chronic) DME (diabetic macular edema) (Chronic) Benign essential HTN (Chronic) Surgical History: coronary bypass surgery, herniorrhaphy, tonsillectomy, - - Elbow surgery x2, S/P ear and eye surgery Psychiatric History: No pertinent psych hx - *Family History Maternal Family History: Family History (Last Reviewed 02/14/20 @ 11:[address] Roberto Madden MD) Father Diabetes Hypertension Hyperlipidemia Mother Hypertension Diabetes Sister Diabetes History Items: Diabetes, Hypertension Paternal Family History: Family History (Last Reviewed 02/14/20 @ 11:[address] Roberto Madden MD) Father Diabetes Hypertension Hyperlipidemia Mother Hypertension Diabetes Sister Diabetes History Items: Diabetes, Heart Disease, Hypertension Lives: Spouse/ Significant Other Smoking Status: Never smoker Tobacco Use: Non-smoker Alcohol: None Drugs: None Objective: Vital Signs Temp Pulse Resp BP Pulse Ox 98.4 F 78 18 147/71 H 95 04/12/20 16:52 04/12/20 16:52 04/12/20 16:52 04/12/20 16:52 04/12/20 16:52 Oxygen Flow Rate (L/min) 2 Oxygen Delivery Method Room Air Weight: 238 lb 5.115 oz Body Mass Index (BMI) 40.8 Intake and Output for Last 24 Hours 04/10/20 04/11/20 04/12/20 23:59 23:59 23:59 Intake Total 600 / 600 Balance 600 / 600 General: Awake, Alert, Oriented x 3 HEENT: Atraumatic Oral: Moist Mucosa Neck: Supple Lungs: Rales - Dank Bases Cardiovascular: Normal S1, Normal S2 Abdomen: Soft Extremities: Bilateral Edema +1 Skin: No Rashes Psych/Mental Status: Appropriate 04/12/20 11:00: WBC 8.0, RBC 4.45 L, Hgb 11.9 L, Hct 38.4 L, MCV 86.3, MCH 26.7 L, MCHC 31.0 L, Plt Count 231, MPV 11.5, Immature Gran % (Auto) 0.200, Neut % (Auto) 59.4, Lymph % (Auto) 24.2, [place] % (Auto) 13.6 H, Eos % (Auto) 2.2, Baso % (Auto) 0.4, Absolute Neuts (auto) 4.8, Nucleated RBC % 0 04/12/20 11:00: Sodium 141, Potassium 4.5, Chloride 108 H, Carbon Dioxide 30.0, Anion Gap 3 L, BUN 21 H, Creatinine 1.31 H, Est GFR (MDRD) Af Amer 70, Est GFR (MDRD) Non-Af 58 L, BUN/Creatinine Ratio 16.0, Glucose 115 H, Calcium 9.2, Troponin I 0.020 04/12/20 11:00: Magnesium 1.4 L 04/12/20 11:00: Hemoglobin A1c 7.6 H 04/12/20 11:00: B-Natriuretic Peptide 1373.6 H 04/12/20 13:50: Total Bilirubin 0.70, Direct Bilirubin 0.22, Troponin I 0.034 04/12/20 17:20: Troponin I 0.033 Rhythm: EKG: ECHO: Stress Test: Cardiac Cath: PCI: CT Surgery: Holter monitor: EPS: PPM: CXR: Chest CT Scan: Assessment/Plan 1. Syncope: Patient has evidence of pulmonary hypertension, new right bundle branch block. I would recommend checking a CT angiogram to rule out PE. DC IV fluids. If this is negative then we can start the patient on Lasix 40 mg IV twice daily. 2. CAD: Appears stable from the standpoint. Will monitor.
--- NOTE | 2020-04-12 19:25 | CT_ITS ---
STUDY: CTA CHEST REASON FOR EXAM: Male, 70 years old. ACUTE CHF, CONCERN FOR PE,SYNCOPE, HTN, CABG RADIATION DOSAGE (If Supplied By Facility): CTDIvol = ( 23.35 ) mGy, DLP = ( 525.90 ) mGycm TECHNIQUE: The examination was performed with the intravenous administration of IV 100mL Isovue-370. Post-processing of the angiographic images was performed, with multiplanar reformation and 3D reconstruction. Individualized dose optimization techniques were used for this CT. COMPARISON: None. FINDINGS: Normal enhancement of the main pulmonary artery and right and left pulmonary arteries. Normal enhancement of the bilateral peripheral pulmonary arteries. There is no demonstrated pulmonary embolism. Atherosclerotic changes of the aorta without evidence for aneurysm There is no demonstrated aortic dissection. Heart is enlarged and is multivessel coronary artery disease. Multiple subcentimeter mediastinal nodes likely benign utilizing CT criteria Normal hilar regions. Normal visualized trachea and bronchi. The lungs are well expanded. Mild diffuse interstitial thickening with emphysematous changes and subtle groundglass opacity possibly representing pulmonary interstitial edema. Small right pleural effusion and compressive atelectasis in the right lower lobe Postop change status post median sternotomy and CABG. Dorsal spine demonstrates moderate spondylosis Multiple tiny calcified granulomata within the liver CT/CTA Chest W/WO Contrast IMPRESSION: Chronic interstitial and emphysematous changes with superimposed ASHD. Findings suggestive of mild pulmonary interstitial edema with small right pleural effusion. No evidence for pulmonary embolus Electronically Signed: Alexandre Verde MD at 20:13 EDT , Service support ,
--- NOTE | 2020-04-12 22:22 | NURSING ---
Pt placed on 2L nasal cannula at this time as his oxygen saturation was 90% on room air.
[2020-04-12] MEDS: Furosemide 40 MG/4 ML Vial IV (22:33)
[2020-04-12] MEDS: Oxybutynin 5 MG Tablet PO (22:33)
[2020-04-12] MEDS: Carvedilol 12.5 MG Tablet PO (22:33)
[2020-04-12] MEDS: Atorvastatin Calcium 80 MG Tablet PO (22:34)
[2020-04-13 00:11] LABS: Bedside Glucose 110 mg/dL (70-110)
[2020-04-13 03:00] VITALS: PULSE 81
[2020-04-13 04:21] VITALS: BP 134/68; PULSE 70; RESP 21; TEMP 36.8; O2SAT 96
[2020-04-13] MEDS: Heparin Injection (Vial) 5,000 UNIT/ML VIAL 5000 UNIT SC (05:37)
[2020-04-13 05:59] LABS: Absolute Lymphocyte Count 2.02 X10^3/uL (0.83-4.51); Absolute Neutrophil Count 4.3 X10^3/uL (2.0-7.7); Basophil# 0.03 X10^3/uL; Basophil% 0.4 % (0-1); Eosinophil# 0.17 X10^3/uL; Eosinophils% 2.2 % (0-5); Hematocrit 35.4 % (40-54); Hemoglobin 10.9 g/dL (13.0-16.5); Lymphocyte # 2.02 X10^3/ul (4.0); Lymphocyte % 26.5 % (19-41); Mean Corp Hgb Conc 30.8 g/dL (32-36); Mean Corpuscular Hgb 26.6 pg (27.0-32.0); Mean Corpuscular Volume 86.3 fL (80-94); Mean Platelet Vol. 11.4 fl (6.2-12.0); Monocyte# 1.12 X10^3/uL; Monocyte% 14.7 % (0-10); NRBC Flagged by Analyzer 0 % (0-5); Neutrophil # 4.25 X10^3/uL (2.7-7.7); Neutrophil % 55.8 % (47-70); Platelet Count 216 K/mm3 (150-450); RBC Distribution Width CV 15.7 % (11.6-14.6); RBC Distribution Width SD 49.1 fl (35.1-43.9); White Blood Count 7.6 K/mm3 (4.4-11.0)
[2020-04-13 06:25] LABS: ALB/GLOB Ratio 0.6 RATIO (0.9-2.4); AST(SGOT) 15 U/L (15-37); Alanine Aminotransfer ALT/SGPT 26 U/L (16-61); Albumin, Serum 2.7 g/dL (3.2-5.0); Alkaline Phosphatase 125 U/L (45-117); Anion Gap 7 (5-15); BUN 20 mg/dL (7-18); BUN/Creat Ratio 18.2 RATIO (10-20); Calcium,Total 8.6 mg/dL (8.5-10.1); Chloride 105 mmol/L (98-107); EST Glomerular Filtration Rate 71 mL/min (>60); Est Glom Filt Rate - Afr Amer 85 mL/min (>60); Estimated Creatinine Clearance 53.07 ml/min; Globulin 4.5 g/dL (2.2-4.2); Glucose 92 mg/dL (74-106); Magnesium 2.2 mg/dL (1.6-2.6); Potassium 3.8 mmol/L (3.5-5.1); Protein, Total 7.2 g/dL (6.4-8.2); Sodium Level 139 mmol/L (136-145)
[2020-04-13 06:32] VITALS: O2SAT 96
[2020-04-13 06:44] VITALS: PULSE 71
[2020-04-13 07:15] LABS: Bedside Glucose 93 mg/dL (70-110)
[2020-04-13] MEDS: Aspirin E.C. 81 MG Tablet PO (07:37)
[2020-04-13] MEDS: Insulin Lispro 100 UNIT/ML INSULN.PEN 20 UNIT SC (07:38)
--- NOTE | 2020-04-13 07:49 | PCM.PN.HOSP ---
Vitals/I&O's: Vital Signs Temp Pulse Resp BP Pulse Ox 98.3 F 71 21 H 134/68 H 96 04/13/20 04:21 04/13/20 06:44 04/13/20 04:21 04/13/20 04:21 04/13/20 06:32 Oxygen Flow Rate (L/min) 2 Oxygen Delivery Method Room Air Weight: 108 kg Body Mass Index (BMI) 40.8 Intake and Output for Last 24 Hours 04/11/20 04/12/20 04/13/20 23:59 23:59 23:59 Intake Total 1806.66 / 1806.66 240 / 240 Balance 1806.66 / 1806.66 240 / 240 Laboratory Results 04/12/20 11:00: WBC 8.0, RBC 4.45 L, Hgb 11.9 L, Hct 38.4 L, MCV 86.3, MCH 26.7 L, MCHC 31.0 L, RDW Std Deviation 48.9 H, RDW Coeff of Hayde 15.5 H, Plt Count 231, MPV 11.5, Immature Gran % (Auto) 0.200, Neut % (Auto) 59.4, Lymph % (Auto) 24.2, [place] % (Auto) 13.6 H, Eos % (Auto) 2.2, Baso % (Auto) 0.4, Absolute Neuts (auto) 4.8, Absolute Lymphs (auto) 1.94, Nucleated RBC % 0 04/12/20 11:00: Sodium 141, Potassium 4.5, Chloride 108 H, Carbon Dioxide 30.0, Anion Gap 3 L, BUN 21 H, Creatinine 1.31 H, Estim Creat Clear Calc 44.56, Est GFR (MDRD) Af Amer 70, Est GFR (MDRD) Non-Af 58 L, BUN/Creatinine Ratio 16.0, Glucose 115 H, Calcium 9.2, Troponin I 0.020 04/12/20 11:00: Magnesium 1.4 L 04/12/20 11:00: Hemoglobin A1c 7.6 H 04/12/20 11:00: B-Natriuretic Peptide 1373.6 H 04/12/20 13:50: Total Bilirubin 0.70, Direct Bilirubin 0.22, AST 19, ALT 28, Alkaline Phosphatase 134 H, Troponin I 0.034, Total Protein 7.3, Albumin 2.8 L, Globulin 4.5 H 04/12/20 16:51: POC Glucose 121 H 04/12/20 17:20: Troponin I 0.033 04/12/20 22:25: POC Glucose 110 04/13/20 05:08: WBC 7.6, RBC 4.10 L, Hgb 10.9 L, Hct 35.4 L, MCV 86.3, MCH 26.6 L, MCHC 30.8 L, RDW Std Deviation 49.1 H, RDW Coeff of Hayde 15.7 H, Plt Count 216, MPV 11.4, Immature Gran % (Auto) 0.400, Neut % (Auto) 55.8, Lymph % (Auto) 26.5, [place] % (Auto) 14.7 H, Eos % (Auto) 2.2, Baso % (Auto) 0.4, Absolute Neuts (auto) 4.3, Absolute Lymphs (auto) 2.02, Nucleated RBC % 0 04/13/20 05:08: Sodium 139, Potassium 3.8, Chloride 105, Carbon Dioxide 27.0, Anion Gap 7, BUN 20 H, Creatinine 1.10, Estim Creat Clear Calc 53.07, Est GFR (MDRD) Af Amer 85, Est GFR (MDRD) Non-Af 71, BUN/Creatinine Ratio 18.2, Glucose 92, Calcium 8.6, Magnesium 2.2, Total Bilirubin 0.70, AST 15, ALT 26, Alkaline Phosphatase 125 H, Total Protein 7.2, Albumin 2.7 L, Globulin 4.5 H, Albumin/Globulin Ratio 0.6 L 04/13/20 07:10: POC Glucose 93 Current Medications Acetaminophen (Tylenol) 650 mg PO Q6H PRN PRN PRN Reason: Pain Score 1-10/Temp > 100.7 F Aspirin (Ecotrin) 81 mg PO DAILY@0800 [facility] Last Admin: 04/13/20 07:37 Dose: 81 mg Documented by: Atorvastatin Calcium (Lipitor) 80 mg PO QHS [facility] Last Admin: 04/12/20 22:34 Dose: 80 mg Documented by: Carvedilol (Coreg) 12.5 mg PO BID [facility] Last Admin: 04/12/20 22:33 Dose: 12.5 mg Documented by: Clopidogrel Bisulfate (Plavix) 75 mg PO DAILY [facility] Dextrose (D50w Syringe) 0 gm IV X1 PRN; Protocol PRN Reason: Hypoglycemia Furosemide (Lasix) 40 mg IV BID@1000,1800 [facility] Last Admin: 04/12/20 22:33 Dose: 40 mg Documented by: Glucagon () 1 mg IM .X1 PRN PRN Reason: Hypoglycemia Heparin Sodium (Porcine) (Heparin Na) 5,000 unit SC Q8 [facility] Last Admin: 04/13/20 05:37 Dose: 5,000 unit Documented by: Hydralazine HCl (Apresoline Iv) 5 mg IV Q6H PRN PRN PRN Reason: BLOOD PRESSURE Sodium Chloride () 500 mls @ 15 mls/hr IV PRN PRN PRN Reason: Blood Transfusion Sodium Chloride () 250 mls @ 15 mls/hr IV .[id number] PRN PRN Reason: Saline Flush Sodium Chloride () 250 mls @ 15 mls/hr IV .[id number] PRN PRN Reason: Additional IVPB Infusion Insulin Glargine (Lantus (Bkc)) 60 units SC QHS [facility] Last Admin: 04/12/20 22:33 Dose: 50 u Documented by: Insulin Human Lispro (Humalog Kwikpen (Bkc)) 20 unit SC 0800,1200,1700 [facility] Last Admin: 04/13/20 07:38 Dose: 20 unit Documented by: Insulin Human Lispro (Humalog Kwikpen (Bkc)) 0 unit SC ACHS [facility]; Protocol Last Admin: 04/13/20 07:37 Dose: Not Given Documented by: Losartan Potassium (Cozaar) 100 mg PO DAILY [facility] Nitroglycerin (Nitrostat) 0.4 mg SUBLINGUAL Q5M PRN PRN Reason: CARDIAC/CHEST PAIN Ondansetron HCl (Zofran) 4 mg IV Q8H PRN PRN PRN Reason: NAUSEA/VOMITING Oxybutynin Chloride (Ditropan) 5 mg PO BID [facility] Last Admin: 04/12/20 22:33 Dose: 5 mg Documented by: Sodium Chloride () 10 - 40 ml IV UD PRN PRN Reason: SALINE FLUSH Last Admin: 04/12/20 22:35 Dose: 20 ml Documented by: Tamsulosin HCl (Flomax) 0.4 mg PO DAILY@1730 [facility] Last Admin: 04/12/20 16:53 Dose: 0.4 mg Documented by: Tramadol HCl (Ultram) 50 mg PO Q6H PRN PRN Reason: Pain Score 1-05/06 STROKE Vital Signs/Narrative: Vital Signs Temp Pulse Resp BP Pulse Ox 04/13/20 06:44 71 04/13/20 06:32 96 04/13/20 04:21 98.3 F 70 21 H 134/68 H 96 Medical Necessity - Tobacco Use Smoking Status: Never smoker Tobacco Use: Non-smoker Assessment/Plan All Active Problems (Last Reviewed 02/14/20 @ 11:[address] Roberto Madden MD) History of left heart catheterization (Acute ~09/06/19) Inpatient E&M: 46456 Subs Hosp L2
[2020-04-13 08:56] VITALS: BP 143/60; PULSE 70; RESP 18; TEMP 36.2; O2SAT 94
[2020-04-13] MEDS: Clopidogrel Bisulfate 75 MG Tablet PO (08:58)
[2020-04-13] MEDS: Losartan Potassium 100 MG Tablet PO (08:58)
[2020-04-13] MEDS: Oxybutynin 5 MG Tablet PO (08:58)
[2020-04-13] MEDS: Carvedilol 12.5 MG Tablet PO (08:59)
[2020-04-13] MEDS: Furosemide 40 MG/4 ML Vial IV (09:01)
--- NOTE | 2020-04-13 10:16 | DCINST_ITS ---
- Discharge Diagnoses Reason(s) for Visit for Discharge Instructions: Syncope, acute CHF You will use the following diet at home:: Calorie/Carbohydrate Controlled (specify 1200, 1400, etc) - 1800 calories, Cardiac, Fluid restricted (specify 2000 mls, 1500 mls) - 1500 mls Your food should be the consistency of: Regular Your liquids should be the consistency of: Regular/Thin Instructions: What Is Heart Failure?, Taking Medication to Control Heart Failure, Heart Failure: Tracking Your Weight, Heart Failure: Being Active, Coping with Heart Failure, Heart Failure: Making Changes to Your Diet Additional Instructions: Continue to take all your medications as prescribed. Take note of changes to your medications. Continue on a low-fat low-salt diet. Restrict your total fluid intake to less than 1500 mls. Weigh yourself every day. Let your doctor know when you gain more than 4 pounds of weight. Follow- up with your primary care doctor in 1 to 2 weeks. Follow-up with the homicide squad sergeant in on Friday. You would need repeat blood work done in your homicide squad sergeant office on Friday to follow-up on your kidney function. You are also being discharged on event monitor. Allergies/Adverse Reactions: Allergies LUIS ALBERTO Inhibitors Adverse Reaction (Intermediate, Verified 02/14/20 10:48) cough simvastatin Adverse Reaction (Intermediate, Verified 02/14/20 10:48) cramps Medications to take at Discharge acetaminophen 500 mg tablet 1,000 mg PO Q6H PRN tab 10/01/19 aspirin 81 mg tablet,delayed release 81 mg PO DAILY 10/01/19 atorvastatin 80 mg tablet 80 mg PO QHS 10/01/19 clopidogrel 75 mg tablet 75 mg PO DAILY 10/01/19 oxybutynin chloride 5 mg tablet 5 mg PO BID tab 10/01/19 tamsulosin 0.4 mg capsule 0.4 mg PO DAILY 10/01/19 tramadol 50 mg tablet 50 mg PO Q6H PRN 10/01/19 insulin aspart U-100 100 unit/mL (3 mL) subcutaneous pen 20 unit SUBCUT TID ml 02/14/20 insulin glargine 100 unit/mL subcutaneous solution 60 unit SUBCUT QHS ml 02/14/20 losartan 100 mg tablet 100 mg PO DAILY #30 tab 02/14/20 metformin 500 mg tablet 500 mg PO BID 02/14/20 Carvedilol [Coreg (Beta Denise)] 12.5 mg PO BID 30 Days #60 tab 04/13/20 Furosemide [Lasix] 40 mg PO BID 30 Days #60 tab 04/13/20 The following prescriptions were given: Carvedilol [Coreg (Beta Denise)] 12.5 mg PO BID 30 Days #60 tab Transmission Status: Pending to [facility] [id number] Furosemide [Lasix] 40 mg PO BID 30 Days #60 tab Transmission Status: Pending to [facility] [id number] Primary Care Physician: [facility] [Primary Care Provider] - Please follow up with your Primary Care Physician in: within 2 weeks Test Results: Test results from this visit will be discussed in further detail at your follow- up appointment, if applicable. Please Follow Up With: Roberto Madden MD When: 1 week Proposed Discharge Date: 04/13/20
--- NOTE | 2020-04-13 10:21 | PCM.DC.SUM ---
Discharge Date and Diagnosis Date of Admission: 04/12/20 Date of Discharge: 04/13/20 - Primary Discharge Diagnosis Acute Problems: Syncope, unclear etiology Acute on chronic diastolic CHF, EF 50 to 55%, stage II diastolic dysfunction Hypomagnesemia - Secondary Discharge Diagnosis Chronic Problems: Chronic Problems (Last Reviewed 02/14/20 @ 11:[address] Roberto Madden MD) TELMA (obstructive sleep apnea) (Chronic) Does not use cpap Ischemic cardiomyopathy (Chronic) History of coronary artery bypass graft (Chronic ~09/14/19) BABB to LAD, SVG to PDA, SVG to OM 09/14/19 Atherosclerosis of coronary artery of [place] heart without angina pectoris (Chronic) BABB to LAD, SVG to PDA, SVG to OM 09/14/19 Chronic kidney disease (CKD) (Chronic) Acute CHF (congestive heart failure) (Chronic) Type 2 diabetes mellitus (Chronic) Morbidly obese (Chronic) DME (diabetic macular edema) (Chronic) Benign essential HTN (Chronic) Hospital Course and Treatment Imaging Results: Clinical Impression(s) from Imaging Studies Chest X-Ray 04/12/20 11:16 IMPRESSION: No acute abnormalities. Electronically Signed: Mike Vega at 12:14 EDT , Service support , Brain CT 04/12/20 11:27 IMPRESSION: Chronic involutional changes of the brain. Electronically Signed: Klaus Fuentes MD at 12:05 EDT , Service support , Chest CTA 04/12/20 19:25 IMPRESSION: Chronic interstitial and emphysematous changes with superimposed ASHD. Findings suggestive of mild pulmonary interstitial edema with small right pleural effusion. No evidence for pulmonary embolus Electronically Signed: Alexandre Verde MD at 20:13 EDT , Service support , Cardiology Operations: None Procedures: 2-D Echocardiogram Summary of Care Provided: The patient is a 70 year old M with past medical history of CAD status post CABG in August 2019, hypertension, type II DM, morbid obesity, follows with Dr. Madden in the outpatient who comes in after a syncopal episode. Patient was walking to the cardiac rehab. He entered the cardiac rehab place. Soon after, he had a syncopal episode. He was reported to have hit his head against 1 of the machines. Initially he was reportedly unresponsive and a CODE BLUE was called. He awoke a few minutes later, able to remember where he was, moving all his extremities. He was sent to the emergency department subsequently. His vitals in the ED were stable except for blood pressure 172/92. SPO2 was 97% on 2 L oxygen. Patient was found to be mildly orthostatic. His admitting blood work was stable. Magnesium was 1.4. Patient's admitting BNpep was 1373.6. His management was that of acute on chronic diastolic CHF. His magnesium was replaced. Troponins were trended anywhere unremarkable. EKG has shown no acute ST change. He had CTA chest that showed no PE. Patient was managed on IV Lasix. He complains of feeling much improved the next day. He was seen by cardiology. Discharged on 40 mg Lasix twice daily. He was given CHF education. He will follow-up with cardiology within a week. He will need repeat blood work at that appointment. Patient was also discharged on 30-day event monitor. Subjective: On the day of discharge, patient was seen and examined. Denied any new complaints. Denied any chest pain, dizziness, palpitations, fever or chills. Objective: Physical exam: General: Alert, Oriented x3, Cooperative, No apparent distress, - - morbidly obese HEENT: Atraumatic, PERRLA, EOMI, Normocephalic Oral: Moist Mucosa Neck: Supple Lungs: Clear to auscultation, Normal air movement Cardiovascular: Regular rate, Regular Rhythm, Normal S1, Normal S2, No murmurs Abdomen: Bowel Sounds Present, Soft, Non Tender, Non-Distended, No Hepato-splenomegaly Extremities: No edema Skin: No rashes Musculoskeletal: No Tenderness to Palpation of Joints or Extremities Lymphatic: No Cervical, Supraclavicular, or Inguinal Adenopathy Neurological: Cranial nerves II-XII grossly intact, Neuro grossly intact Psych/Mental Status: Normal Affect, Appropriate - Physical Exam Vitals/I&O's: Vital Signs Temp Pulse Resp BP Pulse Ox 97.2 F L 70 18 143/60 H 94 04/13/20 08:56 04/13/20 08:56 04/13/20 08:56 04/13/20 08:56 04/13/20 08:56 Oxygen Flow Rate (L/min) 2 Oxygen Delivery Method Room Air Weight: 108 kg Body Mass Index (BMI) 40.8 Intake and Output for Last 24 Hours 04/11/20 04/12/20 04/13/20 23:59 23:59 23:59 Intake Total 1806.66 / 1806.66 240 / 240 Balance 1806.66 / 1806.66 240 / 240 Laboratory Results 04/12/20 11:00: WBC 8.0, RBC 4.45 L, Hgb 11.9 L, Hct 38.4 L, MCV 86.3, MCH 26.7 L, MCHC 31.0 L, RDW Std Deviation 48.9 H, RDW Coeff of Hayde 15.5 H, Plt Count 231, MPV 11.5, Immature Gran % (Auto) 0.200, Neut % (Auto) 59.4, Lymph % (Auto) 24.2, [place] % (Auto) 13.6 H, Eos % (Auto) 2.2, Baso % (Auto) 0.4, Absolute Neuts (auto) 4.8, Absolute Lymphs (auto) 1.94, Nucleated RBC % 0 04/12/20 11:00: Sodium 141, Potassium 4.5, Chloride 108 H, Carbon Dioxide 30.0, Anion Gap 3 L, BUN 21 H, Creatinine 1.31 H, Estim Creat Clear Calc 44.56, Est GFR (MDRD) Af Amer 70, Est GFR (MDRD) Non-Af 58 L, BUN/Creatinine Ratio 16.0, Glucose 115 H, Calcium 9.2, Troponin I 0.020 04/12/20 11:00: Magnesium 1.4 L 04/12/20 11:00: Hemoglobin A1c 7.6 H 04/12/20 11:00: B-Natriuretic Peptide 1373.6 H 04/12/20 13:50: Total Bilirubin 0.70, Direct Bilirubin 0.22, AST 19, ALT 28, Alkaline Phosphatase 134 H, Troponin I 0.034, Total Protein 7.3, Albumin 2.8 L, Globulin 4.5 H 04/12/20 16:51: POC Glucose 121 H 04/12/20 17:20: Troponin I 0.033 04/12/20 22:25: POC Glucose 110 04/13/20 05:08: WBC 7.6, RBC 4.10 L, Hgb 10.9 L, Hct 35.4 L, MCV 86.3, MCH 26.6 L, MCHC 30.8 L, RDW Std Deviation 49.1 H, RDW Coeff of Hayde 15.7 H, Plt Count 216, MPV 11.4, Immature Gran % (Auto) 0.400, Neut % (Auto) 55.8, Lymph % (Auto) 26.5, [place] % (Auto) 14.7 H, Eos % (Auto) 2.2, Baso % (Auto) 0.4, Absolute Neuts (auto) 4.3, Absolute Lymphs (auto) 2.02, Nucleated RBC % 0 04/13/20 05:08: Sodium 139, Potassium 3.8, Chloride 105, Carbon Dioxide 27.0, Anion Gap 7, BUN 20 H, Creatinine 1.10, Estim Creat Clear Calc 53.07, Est GFR (MDRD) Af Amer 85, Est GFR (MDRD) Non-Af 71, BUN/Creatinine Ratio 18.2, Glucose 92, Calcium 8.6, Magnesium 2.2, Total Bilirubin 0.70, AST 15, ALT 26, Alkaline Phosphatase 125 H, Total Protein 7.2, Albumin 2.7 L, Globulin 4.5 H, Albumin/Globulin Ratio 0.6 L 04/13/20 07:10: POC Glucose 93 Current Medications Acetaminophen (Tylenol) 650 mg PO Q6H PRN PRN PRN Reason: Pain Score 1-10/Temp > 100.7 F Aspirin (Ecotrin) 81 mg PO DAILY@0800 [facility] Last Admin: 04/13/20 07:37 Dose: 81 mg Documented by: Atorvastatin Calcium (Lipitor) 80 mg PO QHS [facility] Last Admin: 04/12/20 22:34 Dose: 80 mg Documented by: Carvedilol (Coreg) 12.5 mg PO BID [facility] Last Admin: 04/13/20 08:59 Dose: 12.5 mg Documented by: Clopidogrel Bisulfate (Plavix) 75 mg PO DAILY [facility] Last Admin: 04/13/20 08:58 Dose: 75 mg Documented by: Dextrose (D50w Syringe) 0 gm IV X1 PRN; Protocol PRN Reason: Hypoglycemia Furosemide (Lasix) 40 mg IV BID@1000,1800 [facility] Last Admin: 04/13/20 09:01 Dose: 40 mg Documented by: Glucagon () 1 mg IM .X1 PRN PRN Reason: Hypoglycemia Heparin Sodium (Porcine) (Heparin Na) 5,000 unit SC Q8 [facility] Last Admin: 04/13/20 05:37 Dose: 5,000 unit Documented by: Hydralazine HCl (Apresoline Iv) 5 mg IV Q6H PRN PRN PRN Reason: BLOOD PRESSURE Sodium Chloride () 500 mls @ 15 mls/hr IV PRN PRN PRN Reason: Blood Transfusion Sodium Chloride () 250 mls @ 15 mls/hr IV .[id number] PRN PRN Reason: Saline Flush Sodium Chloride () 250 mls @ 15 mls/hr IV .[id number] PRN PRN Reason: Additional IVPB Infusion Insulin Glargine (Lantus (Bkc)) 60 units SC QHS [facility] Last Admin: 04/12/20 22:33 Dose: 50 u Documented by: Insulin Human Lispro (Humalog Kwikpen (Bkc)) 20 unit SC 0800,1200,1700 [facility] Last Admin: 04/13/20 07:38 Dose: 20 unit Documented by: Insulin Human Lispro (Humalog Kwikpen (Bkc)) 0 unit SC ACHS [facility]; Protocol Last Admin: 04/13/20 07:37 Dose: Not Given Documented by: Losartan Potassium (Cozaar) 100 mg PO DAILY [facility] Last Admin: 04/13/20 08:58 Dose: 100 mg Documented by: Nitroglycerin (Nitrostat) 0.4 mg SUBLINGUAL Q5M PRN PRN Reason: CARDIAC/CHEST PAIN Ondansetron HCl (Zofran) 4 mg IV Q8H PRN PRN PRN Reason: NAUSEA/VOMITING Oxybutynin Chloride (Ditropan) 5 mg PO BID [facility] Last Admin: 04/13/20 08:58 Dose: 5 mg Documented by: Sodium Chloride () 10 - 40 ml IV UD PRN PRN Reason: SALINE FLUSH Last Admin: 04/12/20 22:35 Dose: 20 ml Documented by: Tamsulosin HCl (Flomax) 0.4 mg PO DAILY@1730 [facility] Last Admin: 04/12/20 16:53 Dose: 0.4 mg Documented by: Tramadol HCl (Ultram) 50 mg PO Q6H PRN PRN Reason: Pain Score 1-05/06 Discharge Diet: Low fat/ Low Cholesterol, 2000 mg Sodium Diet Discharge Activity: Return to Normal Activity Home Medications: Medications to take at Discharge acetaminophen 500 mg tablet 1,000 mg PO Q6H PRN tab 10/01/19 aspirin 81 mg tablet,delayed release 81 mg PO DAILY 10/01/19 atorvastatin 80 mg tablet 80 mg PO QHS 10/01/19 clopidogrel 75 mg tablet 75 mg PO DAILY 10/01/19 oxybutynin chloride 5 mg tablet 5 mg PO BID tab 10/01/19 tamsulosin 0.4 mg capsule 0.4 mg PO DAILY 10/01/19 tramadol 50 mg tablet 50 mg PO Q6H PRN 10/01/19 insulin aspart U-100 100 unit/mL (3 mL) subcutaneous pen 20 unit SUBCUT TID ml 02/14/20 insulin glargine 100 unit/mL subcutaneous solution 60 unit SUBCUT QHS ml 02/14/20 losartan 100 mg tablet 100 mg PO DAILY #30 tab 02/14/20 metformin 500 mg tablet 500 mg PO BID 02/14/20 Carvedilol [Coreg (Beta Denise)] 12.5 mg PO BID 30 Days #60 tab 04/13/20 Furosemide [Lasix] 40 mg PO BID 30 Days #60 tab 04/13/20 Following Prescriptions Were Given to Patient: Carvedilol [Coreg (Beta Denise)] 12.5 mg PO BID 30 Days #60 tab Transmission Status: Received by [facility] 181 Furosemide [Lasix] 40 mg PO BID 30 Days #60 tab Transmission Status: Received by [facility] 1812 Other Amb Orders: 30-Day Event Recorder [[facility]] Location: None Selected [facility] Physician[facility] [Primary Care Provider] - Please follow up with your Primary Care Physician in: within 2 weeks Please Follow Up With: Roberto Madden MD When: 1 week Patient Instructions: Taking Medication to Control Heart Failure, What Is Heart Failure?, Heart Failure: Tracking Your Weight, Heart Failure: Being Active, Coping with Heart Failure, Heart Failure: Making Changes to Your Diet Disposition: Home Minutes spent on discharge:: 40 Patient Condition:: Stable Medical Necessity - Tobacco Use Smoking Status: Never smoker Tobacco Use: Non-smoker Meaningful Use Info Meaningful Use Diagnoses (Choose all that apply): None applicable OBSV E&M: 35578 Observation care discharge
--- NOTE | 2020-04-13 11:49 | PHA.DC.MC ---
Pharmacy Service has performed discharge medication reconciliation and counseling for this patient. The patient was counseled on the following discharge medications and changes in medications for homegoing were reviewed. 1. LASIX 2. COREG The Reason for Use, instructions for use, and potential side effects were reviewed for all new medications. The patient's questions regarding all of their medications were answered. The patient demonstrated some understanding but would benefit from further education and reinforcement. Note: Discussed with the patient about importance of medication compliance. 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 Provided recommendations to the patient bout medication timing to avoid excessive bathroom use while on the job and throughout the night. The patient was open to medication timing suggestions, but compliance will also be enforced by physician prior to the patient leaving the hospital. Home Medications acetaminophen 500 mg tablet 1,000 mg PO Q6H PRN tab 10/01/19 aspirin 81 mg tablet,delayed release 81 mg PO DAILY 10/01/19 atorvastatin 80 mg tablet 80 mg PO QHS 10/01/19 clopidogrel 75 mg tablet 75 mg PO DAILY 10/01/19 oxybutynin chloride 5 mg tablet 5 mg PO BID tab 10/01/19 tamsulosin 0.4 mg capsule 0.4 mg PO DAILY 10/01/19 tramadol 50 mg tablet 50 mg PO Q6H PRN 10/01/19 insulin aspart U-100 100 unit/mL (3 mL) subcutaneous pen 20 unit SUBCUT TID ml 02/14/20 insulin glargine 100 unit/mL subcutaneous solution 60 unit SUBCUT QHS ml 02/14/20 losartan 100 mg tablet 100 mg PO DAILY #30 tab 02/14/20 metformin 500 mg tablet 500 mg PO BID 02/14/20 Carvedilol [Coreg (Beta Denise)] 12.5 mg PO BID 30 Days #60 tab 04/13/20 Furosemide [Lasix] 40 mg PO BID 30 Days #60 tab 04/13/20 The patient's discharge medication list was reviewed for discrepancies and discrepancies were resolved.
== END 2020-04-13 10:12 | disposition home or self-care (01) ==
LOC: ED 11:57 → PCU 12:20
PROVIDERS: Admitting Provider Internal Medicine; Emergency Provider Emergency Medicine; Visit Provider Internal Medicine
DX: R55 Syncope and collapse (principal); I13.0 Hypertensive heart and chronic kidney disease with heart failure and stage 1 through stage 4 chronic kidney disease, or unspecified chronic kidney disease; I50.33 Acute on chronic diastolic (congestive) heart failure; E83.42 Hypomagnesemia; G47.33 Obstructive sleep apnea (adult) (pediatric); E66.01 Morbid (severe) obesity due to excess calories; I25.10 Atherosclerotic heart disease of native coronary artery without angina pectoris; E11.22 Type 2 diabetes mellitus with diabetic chronic kidney disease; N18.3 Chronic kidney disease, stage 3 (moderate); I25.2 Old myocardial infarction; I45.10 Unspecified right bundle-branch block; I25.5 Ischemic cardiomyopathy; N40.0 Benign prostatic hyperplasia without lower urinary tract symptoms; Z68.41 Body mass index [BMI] 40.0-44.9, adult; Z95.1 Presence of aortocoronary bypass graft; Z79.899 Other long term (current) drug therapy; Z79.4 Long term (current) use of insulin; Z79.82 Long term (current) use of aspirin; Z79.02 Long term (current) use of antithrombotics/antiplatelets
CPT/HCPCS: 36415; 70450; 71045; 71275; 80048; 80053; 80076; 82962; 83036; 83735; 83880; 84484; 85025; 93005; 93306; 96361; 96365; 96366; 97802; 99218; 99251; 99285; J7030; J7040; Q9957; Q9967; A4216; G0378; G0463; J1940

== ENCOUNTER 2020-04-24 11:30 | Outpatient (RCR) | payer MEDICARE, MEDICAID, SELFPAY ==
[2020-02-21 14:19] VITALS: BMI 40.6
[2020-03-23 07:09] VITALS: BMI 41.3
[2020-03-28 00:18] VITALS: BP 150/88; BP 164/80
--- NOTE | 2020-04-12 10:59 | PCM.PN.BLA ---
Progress Note Patient is a [address] Michaels who arrived to CR today. Patient had been sitting in the waiting area for about 5 minutes and began walking back to the nurses station to be hook-up for monitoring. Patient walked about 20 feet and suddenly collapsed; patient was unresponsive to verbal or painful stimuli. Code Blue was called and CPR started per CR staff. Patient became responsive to verbal commands. Patient did strike his head on the treadmill and floor upon fall. Code Team arrived and patient assessed. 12-lead EKG obtained per BEAM HOUSE INSPECTOR, C-Spine secured with C-Collar and patient placed in sling support to be lifted to the emergency room bed. Patient transported to emergency room on the monitor.
--- NOTE | 2020-04-19 06:40 | CR.ITP_ITS ---
Exercise - 60-day Assessment - Visit Date of Eval: 04/19/20 Session #:: 14 - missed three sessions due to syncopal episode - Physician Prescribed Exercise Modalities: Treadmill, NuStep, SciFit Frequency: 3x/week for 12 weeks [36 sessions] Intensity: 60-80% of age predicted maximum heart rate reserve Current METSs:: 2.1 unchanged Target Heart Rate:: 99-129 Current RPE:: 11-12 Maximum Excercise HR:: 114 Resting Blood Pressure: 158/90 - uncontrolled on medication Maximum Exercise Blood Pressure: 172/88 EKG Type: NSR to sinus tach with occas. PVCs. - Outcomes & Goals Goals:: Verbalizes understanding of THR, RPE & goal METS by session 6, Documents in home exercise log/reports 30 min aerobic 5 day/wk by DC, Demonstrates accurate pulse taking by DC - Intervention & Plan Exercise Program Goals: Instruct on personal THR & RPE, Instruct on MET level & personal MET goal, Show patient to take own pulse /validate performance until accurate, Instruct on home exercise - 30-day Reassessments 30 day Reassessments:: Not Met - Physical Activity Home Exercise Physical Activity - Home Exercise: Safe Exercise, Warm-up, Self-monitoring, Cool-Down, Home Exercise > 30 min Daily, Sitting Time <3 hours/daily - Outcomes & Goals Outcomes/Goals: Demonstrates correct Warm-up/exercise Cool-Down (S3) if = 2.5 METs, Verbalizes symptoms of exercise intolerance by Session 3 (S3), Demonstrate safe equipment use (S3) & follows exercise prescrition (6) - Intervention & Plan Plan/Intervention: Instruct warm-up & cool-down if exercising at > 2 METs, Instruct on symptoms of exercise intolerance & actions to take, Instruct & monitor on saf, Assess intial functional capacity & safety risk - 30-day Reassessments 30 day Reassessments:: Not Met Nutrition - 60-Day Assessment - Program Goals Nutrition Program Goals: LDL <100 optimal. 100 - 129 Near optimal. 130 - 159 Borderline High. 160 - 189 High. Total Cholesterol <200 desirable. 200 - 239 Borderline High. >/= 240 High. HDL < 40 Low >/=60 High. Triglycerides <150 desirable. <199 optimal. VlDL 5 - 40. HgbA1C <7%. BMI <25 Patient has diagnosis of Hyperlipidemia (ICD E78)?: Yes - Visit Date of Assessment:: 04/19/20 Session #:: 14 - no updated labs available - Cholesterol/Lipids Determine presence & major risk factors that modify LDL goal: Hypertension or hypertensive medication, Age men > 45 years; women >/= 55 years Outcomes/Goals: Pt IDs own risk factors & lifestyle modifications by Session 10, Verbalizes symptoms of angina & response by session 3., Pt independently manages Intervention/Plan: Instruct on personal lipid levels & lipid goals/NCEP guidelines, Instruct on cholesterol Referral to dietitian:: Yes 30-day Reassessments:: Progressing - Diabetes (Other Core Measures) Diabetes Type: Diagnosis Type II ICD-10 E11 Fasting blood glucose:: 223 Insulin dependent injection/pump?: Yes Non-Insulin Dependent?: Yes Do you monitor your blood sugar at home?: Yes Referral to Diabetic Clinic:: Yes Outcomes/Goals:: Able to state symptoms of, Able to state, Able to state Intervention/Plan:: Instruct on, Refer to, Instruct on - Weight Mgt (Other Care) Not Applicable: No Height: 5 ft 4 in Weight:: 246 lb BMI: 42.2 Diagnosis Overweight/Obesity BMI> 30% ICD-10 E66: Yes Diagnosis High BMI/Morbid Obesity BMI> 35% ICD-10 Z68: Yes Outcomes/Goals: Pt sets, maintains & shows weight loss goal & trend during rehab Intervention/Plan: Instruct on ideal BMI & set weight loss goal w/patient, Assist pt to ID & incorporate diet changes for weight loss by S9, Refer to Structured Weight Loss program as appropriate, Encourage goal of using 250- 300dcal per session for weight loss 30 day Reassessments:: Not Met - Healthy Eating Habits Will attend diet classes:: Yes Outcomes/Goals:: Consume diet rich in vegs,fruits,whole grain/high fiber,fish,lean meat, Limit sat/trans fats,cholesterol & added salts & sugars Intervention/Plan:: Assess current eating habits 30-day Reassessments:: Not Met - Patient reqires reinforcement and encouragement in proper erika/lifestyle changes needed. - Education Gave educational materials for:: Signs & symptoms of hypoglycemia, Signs & symptoms of hyperglycemia, Relate diabetes to coronary artery disease, Healthy eating Medical- 60-Day Assessment - Visit Date of Eval: 04/19/20 Session #:: 14 - Medication Compliance Preventative Medication(s):: Aspirin, Clopidogrel/P2Y12 inhibit, Statin/lipid, Beta trisha Believes medications are unnecessary or harmful?: No Has a concern about medication side effects?: No Expresses concern over the cost of medications?: No Outcomes/Goals: Verbalizes medications,desired effect & common side effects @ DC, Pt self-reports following medication regimen, Keeps card in wallet w/medications listed by DC Interventions/plans: Instruct on medication effects & side effects, Review medication list w/patient every two weeks, Instruct importance of taking meds as ordered & assist problem solving 30-day Reassessments:: Not Met - Patient requires reinforcement of importance of taking medications regularly as prescribed. - Tobacco Use Tobacco Use: Non-smoker - Hypertension Hypertension Diagnosis:: Hypertension ICD-10 I10 Resting Blood Pressure:: 158/90 - uncontrolled with medications [place] [employer] Hypertension Guidelines: [place] [employer] Hypertension Guidelines. Normal BP Less than 120/80. Elevated BP 120/80. Hypertension Stage 1: BP 130-139/80-89. Hypertesnion Stage 2: BP 140 or higher/90 or higher. Hypertension Crisis: BP higher than 180/120 Peak Exercise Blood Pressure:: 172/88 Outcomes/Goals: Able to verbalize/achieve optimal blood pressure <130/80, Incorporates diet changes & exercise for blood pressure control by DC Interventions/plan: Instruct on optimal blood pressure, hypertension & medications, Instruct on effects of sodium, alcohol, stress, exercise &hypertension 30 day Reassessments:: Not Met - Patient is not taking medications as prescribed. Frequently avoids taking medication. - Tobacco Cessation Referral Smoking Cessation Referral:: No Individual Education/Counseling:: No Education Schedule Given:: Yes Psychosocial - 60-Day Assess - VIsit Date of Eval: 04/19/20 Session #:: 14 Not Applicable: Yes - Target Goals Target Goals: Assess presence or absence of depression. Using a valid screening tool, maximizes coping skills. Positive support system - Psychosocial Test Tool Used:: PHQ-9 Questionnaire phq-9 Severity: Severity. 1-4 Minimal Depression. 5-9 Mild Depression. 10-14 Moderate Depression. 15-19 Moderately Sever Depression. 20-27 Severe Depression. Rule: See PHQ-9 Score: 13 - Moderate Depression per PHQ-9 Score - Referral to Behavioral Health PS - Interventions: Yes Referral to Physician if PHQ-9 if score is 5-9:, Yes Attend Stress Management Classes, No Referral to Behavioral Health if PHQ-9 score >9:, No Referral to [facility] - Outcomes/Goals: See list Psychosocial Outcomes/Goals:: ID's personal stressors & 2 strategies to manage stress by discharge - Intervention/Plan: See List Interventions/Plan:: Assess stressors,coping strategies & signs of derpression on admission, Instruct/assist pt to develop coping & personal stress Mgt strategies, Instruct patient to recognize signs & symptoms of depression, Instruct patient to recog - 30-day Reassessments: 30 day Reassessments:: Progressing Patient Health Questionnaire 60-Day Re-eval Assessment 1. Little interest or pleasure in doing things: Nearly every day 2. Feeling down, depressed, or hopeless: Several days 3. Trouble falling or staying asleep, or sleeping too much: Nearly every day 4. Feeling tired or having little energy: More than half the days 5. Poor appetite or overeating: More than half the days 6. Feeling bad about yourself -- or that you are a failure or have let yourself or your family down: Not at all 7. Trouble concentrating on things, such as reading the newspaper or watching television: Not at all 8. Moving or speaking so slowly that other people could have noticed. Or the opposite - being so fidgety or restless that you have been moving around a lot more than usual: More than half the days 9. Thoughts that you would be better off , or of hurting yourself in some way: Not at all How difficult have these problems made it for you to do your work, take care of things at home, or get along with other people?: Somewhat difficult - Patient should be evaluated more by PCP for depression management. Total Score: 13 Self-Efficacy 60-Day Re-eval Assessment We would like to know how confident you are in doing certain activities. Please select your confidence level for:: Select your confidence level for the following using the scale 1-10 where 1 is not at all confident and 10 is totally confident. Your score is the average of all 6 responses. Fatigue: How confident are you that you can keep the fatigue caused by your disease from interfering with the things you want to do? Select Number: 1 Physical Discomfort or Pain: How confident are you that you can keep the physical discomfort or pain of your disease from interfering with the things you want to do? Select Number: 1 Emotional Distress: How confident are you that you can keep the emotional distr ess caused by your disease from interfering with the things you want to do? Select Number: 3 Other Symptoms or Health Problems: How confident are you that you can keep other symptoms or health problems from interfering with the things you want to do? Select Number: 3 Different Tasks and Activities: How confident are you that you can do the different tasks and activities needed to manage your health condition so as to reduce your need to see a doctor? Select Number: 1 Medication: How confident are you that you can do things other than just taking medication to reduce how much your illness affects your everyday life? Select Number: 3 Total Score:: 2
[2020-04-19 06:54] VITALS: BP 158/90; BP 172/88; BMI 42.2
== END 2020-04-26 23:59 ==
LOC: CR 11:30
PROVIDERS: Referring Provider Specialist; Visit Provider Specialist
DX: I25.10 Atherosclerotic heart disease of native coronary artery without angina pectoris (principal); Z95.1 Presence of aortocoronary bypass graft; I25.5 Ischemic cardiomyopathy; E11.9 Type 2 diabetes mellitus without complications
CPT/HCPCS: 93005; 93798

== ENCOUNTER 2020-05-24 11:30 | Outpatient (RCR) | payer MEDICARE, MEDICAID, SELFPAY ==
[2020-04-17 11:57] VITALS: BMI 40.8
[2020-04-19 06:54] VITALS: BMI 42.2
[2020-04-27 00:22] VITALS: BP 158/90; BP 172/88
--- NOTE | 2020-05-17 11:05 | PCM.CR.ITP ---
Exercise - 90-day Assessment - Visit Date of Eval: 05/17/20 Session #:: 23 - Patient not attended since 05/10/20 driving [facility] - Physician Prescribed Exercise Modalities: Treadmill, NuStep, SciFit Frequency: 3x/week for 12 weeks [36 sessions] Intensity: 60-80% of age predicted maximum heart rate reserve Current METSs:: 2.0 unchanged Target Heart Rate:: 99-129 Current RPE:: 11-12 Maximum Excercise HR:: 97 Resting Blood Pressure: 130/80 Maximum Exercise Blood Pressure: 138/70 EKG Type: NSR with occasional PACs PVCs several ventricular couplets. - Outcomes & Goals Goals:: Verbalizes understanding of THR, RPE & goal METS by session 6, Documents in home exercise log/reports 30 min aerobic 5 day/wk by DC, Demonstrates accurate pulse taking by DC - Intervention & Plan Exercise Program Goals: Instruct on personal THR & RPE, Instruct on MET level & personal MET goal, Show patient to take own pulse /validate performance until accurate, Instruct on home exercise - 30-day Reassessments 30 day Reassessments:: Not Met - Physical Activity Home Exercise Physical Activity - Home Exercise: Safe Exercise, Warm-up, Self-monitoring, Cool-Down, Home Exercise > 30 min Daily, Sitting Time <3 hours/daily - Outcomes & Goals Outcomes/Goals: Demonstrates correct Warm-up/exercise Cool-Down (S3) if = 2.5 METs, Verbalizes symptoms of exercise intolerance by Session 3 (S3), Demonstrate safe equipment use (S3) & follows exercise prescrition (6) - Intervention & Plan Plan/Intervention: Instruct warm-up & cool-down if exercising at > 2 METs, Instruct on symptoms of exercise intolerance & actions to take, Instruct & monitor on saf, Assess intial functional capacity & safety risk - 30-day Reassessments 30 day Reassessments:: Not Met Nutrition - 90-Day Assessment - Program Goals Nutrition Program Goals: LDL <100 optimal. 100 - 129 Near optimal. 130 - 159 Borderline High. 160 - 189 High. Total Cholesterol <200 desirable. 200 - 239 Borderline High. >/= 240 High. HDL < 40 Low >/=60 High. Triglycerides <150 desirable. <199 optimal. VlDL 5 - 40. HgbA1C <7%. BMI <25 - Visit Date of Assessment:: 05/17/20 Session #:: 23 - no recent labs - Cholesterol/Lipids Determine presence & major risk factors that modify LDL goal: Hypertension or hypertensive medication, Age men > 45 years; women >/= 55 years Outcomes/Goals: Pt IDs own risk factors & lifestyle modifications by Session 10, Verbalizes symptoms of angina & response by session 3., Pt independently manages Intervention/Plan: Instruct on personal lipid levels & lipid goals/NCEP guidelines, Instruct on cholesterol Referral to dietitian:: No - seen nutitional services on 03/23/2020 declined services 30-day Reassessments:: Progressing - Diabetes (Other Core Measures) Diabetes Type: Diagnosis Type II ICD-10 E11 Fasting blood glucose:: 215 Insulin dependent injection/pump?: Yes Non-Insulin Dependent?: Yes Do you monitor your blood sugar at home?: Yes Referral to Diabetic Clinic:: No - patient declined services Outcomes/Goals:: Able to state symptoms of, Able to state, Able to state Intervention/Plan:: Instruct on, Refer to, Instruct on 30-day Reassessments:: Progressing - Weight Mgt (Other Care) Not Applicable: No Height: 5 ft 4 in Weight:: 241 lb 8 oz BMI: 41.4 Diagnosis Overweight/Obesity BMI> 30% ICD-10 E66: Yes Diagnosis High BMI/Morbid Obesity BMI> 35% ICD-10 Z68: Yes Outcomes/Goals: Pt sets, maintains & shows weight loss goal & trend during rehab Intervention/Plan: Instruct on ideal BMI & set weight loss goal w/patient, Assist pt to ID & incorporate diet changes for weight loss by S9, Encourage goal of using 250-300dcal per session for weight loss 30 day Reassessments:: Not Met Reassessment Notes & Comments:: patient not making any attempt to correct dietary needs - Healthy Eating Habits Will attend diet classes:: Yes Outcomes/Goals:: Consume diet rich in vegs,fruits,whole grain/high fiber,fish,lean meat, Limit sat/trans fats,cholesterol & added salts & sugars Intervention/Plan:: Assess current eating habits, Other Additional plan/interventions 30-day Reassessments:: Not Met - Tried reinforcing importance of Nutritional Services in weight loss diabetic and medical nutrition therapy - Education Gave educational materials for:: Signs & symptoms of hypoglycemia, Signs & symptoms of hyperglycemia, Relate diabetes to coronary artery disease, Healthy eating Medical- 90-Day Assessment - Visit Date of Eval: 05/17/20 Session #:: 23 - Medication Compliance Preventative Medication(s):: Aspirin, Clopidogrel/P2Y12 inhibit, Statin/lipid, Beta trisha H/O mental health issues: depression, anxiety, or addiction?: Yes Doesn?t believe in the benefits of treatment?: No Believes medications are unnecessary or harmful?: No Has a concern about medication side effects?: No Expresses concern over the cost of medications?: No Outcomes/Goals: Verbalizes medications,desired effect & common side effects @ DC, Pt self-reports following medication regimen, Keeps card in wallet w/medications listed by DC Interventions/plans: Instruct on medication effects & side effects, Review medication list w/patient every two weeks, Instruct importance of taking meds as ordered & assist problem solving 30-day Reassessments:: Progressing - Tobacco Use Tobacco Use: Non-smoker - Hypertension Hypertension Diagnosis:: Hypertension ICD-10 I10 Resting Blood Pressure:: 130/80 [place] [employer] Hypertension Guidelines: [place] [employer] Hypertension Guidelines. Normal BP Less than 120/80. Elevated BP 120/80. Hypertension Stage 1: BP 130-139/80-89. Hypertesnion Stage 2: BP 140 or higher/90 or higher. Hypertension Crisis: BP higher than 180/120 Peak Exercise Blood Pressure:: 138/70 Outcomes/Goals: Able to verbalize/achieve optimal blood pressure <130/80, Incorporates diet changes & exercise for blood pressure control by DC Interventions/plan: Instruct on optimal blood pressure, hypertension & medications, Instruct on effects of sodium, alcohol, stress, exercise &hypertension 30 day Reassessments:: Progressing - Tobacco Cessation Referral Smoking Cessation Referral:: No Individual Education/Counseling:: No Education Schedule Given:: Yes Psychosocial - 90-Day Assess - VIsit Date of Eval: 05/17/20 Session #:: 23 Not Applicable: No History of previous Mental disease:: Yes History of Emotional Disorders: Anxious, Depression - Target Goals Target Goals: Assess presence or absence of depression. Using a valid screening tool, maximizes coping skills. Positive support system - Psychosocial Test Tool Used:: PHQ-9 Questionnaire phq-9 Severity: Severity. 1-4 Minimal Depression. 5-9 Mild Depression. 10-14 Moderate Depression. 15-19 Moderately Sever Depression. 20-27 Severe Depression. Rule: - Referral to Behavioral Health PS - Interventions: Yes Attend Stress Management Classes, No Referral to Behavioral Health if PHQ-9 score >9:, No Referral to [facility], No Referral to Physician if PHQ-9 if score is 5-9: - Outcomes/Goals: See list Psychosocial Outcomes/Goals:: ID's personal stressors & 2 strategies to manage stress by discharge - Intervention/Plan: See List Interventions/Plan:: Assess stressors,coping strategies & signs of derpression on admission, Instruct/assist pt to develop coping & personal stress Mgt strategies, Instruct patient to recognize signs & symptoms of depression, Instruct patient to recog - 30-day Reassessments: 30 day Reassessments:: Progressing Patient Health Questionnaire 90-Day Re-eval Assessment 1. Little interest or pleasure in doing things: Nearly every day 2. Feeling down, depressed, or hopeless: Several days 3. Trouble falling or staying asleep, or sleeping too much: Nearly every day 4. Feeling tired or having little energy: More than half the days 5. Poor appetite or overeating: More than half the days 6. Feeling bad about yourself -- or that you are a failure or have let yourself or your family down: Not at all 7. Trouble concentrating on things, such as reading the newspaper or watching television: Not at all 8. Moving or speaking so slowly that other people could have noticed. Or the opposite - being so fidgety or restless that you have been moving around a lot more than usual: More than half the days 9. Thoughts that you would be better off , or of hurting yourself in some way: Not at all How difficult have these problems made it for you to do your work, take care of things at home, or get along with other people?: Somewhat difficult Total Score: 13 Self-Efficacy 90-Day Re-eval Assessment We would like to know how confident you are in doing certain activities. Please select your confidence level for:: Select your confidence level for the following using the scale 1-10 where 1 is not at all confident and 10 is totally confident. Your score is the average of all 6 responses. Fatigue: How confident are you that you can keep the fatigue caused by your disease from interfering with the things you want to do? Select Number: 3 Physical Discomfort or Pain: How confident are you that you can keep the physical discomfort or pain of your disease from interfering with the things you want to do? Select Number: 3 Emotional Distress: How confident are you that you can keep the emotional distress caused by your disease from interfering with the things you want to do? Select Number: 4 Other Symptoms or Health Problems: How confident are you that you can keep other symptoms or health problems from interfering with the things you want to do? Select Number: 3 Different Tasks and Activities: How confident are you that you can do the different tasks and activities needed to manage your health condition so as to reduce your need to see a doctor? Select Number: 2 Medication: How confident are you that you can do things other than just taking medication to reduce how much your illness affects your everyday life? Select Number: 4 Total Score:: 3
[2020-05-17 11:15] VITALS: BP 130/80; BP 138/70; BMI 41.4
== END 2020-05-27 23:59 ==
LOC: CR 11:30
PROVIDERS: Referring Provider Specialist; Visit Provider Specialist
DX: Z71.3 Dietary counseling and surveillance (principal); I25.10 Atherosclerotic heart disease of native coronary artery without angina pectoris; Z95.1 Presence of aortocoronary bypass graft; I25.5 Ischemic cardiomyopathy; E11.9 Type 2 diabetes mellitus without complications
CPT/HCPCS: 93798

== ENCOUNTER → 2020-05-25 10:39 | Outpatient (CLI) | payer MEDICARE, MEDICAID, SELFPAY ==
[2020-04-17 11:57] VITALS: BMI 40.8
[2020-05-17 11:15] VITALS: BMI 41.4
== END ==
PROVIDERS: Referring Provider Specialist; Visit Provider Specialist
DX: U07.1 COVID-19 (principal); E11.22 Type 2 diabetes mellitus with diabetic chronic kidney disease; I12.9 Hypertensive chronic kidney disease with stage 1 through stage 4 chronic kidney disease, or unspecified chronic kidney disease; N18.9 Chronic kidney disease, unspecified; Z95.1 Presence of aortocoronary bypass graft; I25.10 Atherosclerotic heart disease of native coronary artery without angina pectoris; I25.5 Ischemic cardiomyopathy
CPT/HCPCS: 87635; C9803; U0003

== ENCOUNTER → 2020-06-16 10:24 | Outpatient (CLI) | payer MEDICARE, MEDICAID, SELFPAY ==
[2020-04-17 11:57] VITALS: BMI 40.8
[2020-05-17 11:15] VITALS: BMI 41.4
[2020-06-16 11:46] LABS: Anion Gap 4 (5-15); BUN 27 mg/dL (7-18); BUN/Creat Ratio 24.3 RATIO (10-20); Calcium,Total 9.4 mg/dL (8.5-10.1); Chloride 103 mmol/L (98-107); Creatinine, Serum 1.11 mg/dL (0.70-1.30); EST Glomerular Filtration Rate 70 mL/min (>60); Est Glom Filt Rate - Afr Amer 84 mL/min (>60); Glucose 133 mg/dL (74-106); Potassium 4.2 mmol/L (3.5-5.1); Sodium Level 138 mmol/L (136-145)
[2020-06-16 11:53] LABS: Protein, Urine (Random) 107.3 mg/dL (<11.9); Protein:Creat Ratio 1121 mg/g CRE (0-200)
== END ==
PROVIDERS: Referring Provider Internal Medicine Nephrology; Visit Provider Internal Medicine Nephrology
DX: N18.30 Chronic kidney disease, stage 3 unspecified (principal)
CPT/HCPCS: 36415; 80048; 82570; 84156